=== PATIENT | female | born 1950 | race Caucasian/White ===

== ENCOUNTER 2016-04-26 20:22 | Observation (INO) | payer MEDICAID ==
[~2016-04-26] VITALS: Ht 160 cm; Wt 92.0 kg
[2016-04-26 20:25] VITALS: BP 196/119; PULSE 100; RESP 24; TEMP 100.6; O2SAT 98
[2016-04-26] MEDS ORDERED: HYDR-3366 PO (20:54)
[2016-04-26] MEDS ORDERED: IBUP800T23 PO (20:54)
[2016-04-26] MEDS ORDERED: BISA10SU3 RECTAL (20:54)
[2016-04-26] MEDS ORDERED: APLI5INJ2 (20:54)
[2016-04-26] MEDS ORDERED: ALBU0.08 NEB (20:54)
[2016-04-26] MEDS ORDERED: PERC10TA27 PO (20:54)
[2016-04-26] MEDS ORDERED: ASPI81CH CHEW (20:54)
[2016-04-26] MEDS ORDERED: [UNRECOGNIZED DRUG - CODE] (20:54)
[2016-04-26 20:58] LABS: AUTOMATED NEUTROPHIL # 4.4 TH/MM3 (1.8-7.7); BASOPHIL % 0.3 % (0.0-2.0); EOSINOPHIL % 0.5 % (0.0-4.0); HEMATOCRIT 34.1 % (35.0-46.0); HEMO FLAGS DIFF FINAL; LYMPH % 12.1 % (9.0-44.0); LYMPHOCYTE # 0.7 TH/MM3 (1.0-4.8); MEAN CELL VOLUME 89.2 FL (80.0-100.0); MEAN CORPUSCULAR HEMOGLOBIN 29.9 PG (27.0-34.0); MEAN CORPUSCULAR HGB CONC 33.5 % (32.0-36.0); MONO % 7.9 % (0.0-8.0); NEUT % 79.2 % (16.0-70.0); PLATELET COUNT 191 TH/MM3 (150-450); RED BLOOD COUNT 3.82 MIL/MM3 (4.00-5.30); RED CELL DISTRIBUTION WIDTH 17.2 % (11.6-17.2); WHITE BLOOD COUNT 5.5 TH/MM3 (4.0-11.0)
[2016-04-26 21:07] LABS: APTT (PATIENT) 26.8 SEC (24.3-30.1); PROTHROMBIN TIME - PATIENT 11.6 SEC (9.8-11.6)
[2016-04-26 21:13] LABS: ANION GAP 8 MEQ/L (5-15); AST (GOT) 71 U/L (15-37); BICARBONATE 24.6 MEQ/L (21.0-32.0); BLOOD UREA NITROGEN 19 MG/DL (7-18); CHLORIDE 100 MEQ/L (98-107); GLOMERULAR FILTRATION RATE 68 ML/MIN (>89); POTASSIUM 3.8 MEQ/L (3.5-5.1); SODIUM (NA) 133 MEQ/L (136-145)
[2016-04-26 21:18] LABS: ALKALINE PHOSPHATASE 424 U/L (45-117); ALT (GPT) 15 U/L (10-53)
[2016-04-26] MEDS ORDERED: LORazepam 2 MG/ML VIAL IV PUSH ONE (21:30)
--- NOTE | 2016-04-26 21:33 | RADRPT ---
EXAM DATE/TIME: 04/26/2016 20:48 [facility] COMPARISON: No previous studies available for comparison. INDICATIONS : Short of breath. MEDICAL HISTORY : None. SURGICAL HISTORY : None. ENCOUNTER: Initial ACUITY: 1 day PAIN SCORE: 0/10 LOCATION: Bilateral chest FINDINGS: The heart size is normal. The lungs are grossly clear. There does appear to be absence of much of the fourth right rib. There is a focal bone lesion at the medial left fourth rib. There is a questionable irregularity at the right ninth rib. The patient does have a compression deformity at the T11 vertebral body. A single view of the chest demonstrates the lungs to be symmetrically aerated without evidence of mas s, infiltrate or effusion. The cardiomediastinal contours are unremarkable. Osseous structures are intact. CONCLUSION: 1. The lungs are grossly clear. 2. Suspected bone lesions as described above. Reed Flores MD on April 26, 2016 at 21:22 Board Certified Radiologist. This report was verified electronically.
[2016-04-26 21:46] LABS: CREATINE KINASE 55 U/L (26-192)
[2016-04-26 21:47] VITALS: BP 136/69; PULSE 93; RESP 30; O2SAT 95
--- NOTE | 2016-04-26 21:56 | PD ---
HPI Chief Complaint: Respiratory Symptoms Time Seen by Provider: 21:53 Travel History International Travel<30 days: No Contact w/Intl Traveler<30days: No Traveled to known affect area: No History of Present Illness HPI 65-year-old female brought in by EMS from local nursing facility. Patient comes in with complaints of shortness of breath. Patient also complaints of chronic lower back pain. Patient was in a detention facility status post fracture of her left lower leg and left elbow. Patient reports history of falling on January 17, injuring her left leg and left wrist. She was treated in [facility] and [place]. Patient states she has lost proxy 40 pounds last 3 months. She leans the bad food at the detention facility. Patient is noted to have a low-grade fever 100.6 and her vital signs, however she denies fever, chills, cough, sore throat, upper respiratory symptoms,, vomiting, or urinary symptoms. Patient states she's had episodes of shortness of breath intermittently over the past several weeks. Again she complains of significant thoracic and lower back pain for which he claims her bed at the [facility]. She has no known drug allergies. PFSH Past Medical History Anxiety: Yes Depression: Yes Tetanus Vaccination: Unknown Influenza Vaccination: No ?: Not Social History Alcohol Use: No Tobacco Use: No Substance Use: No Allergies-Medications (Allergen,Severity, Reaction): Coded Allergies: No Known Allergies (Unverified , 04/26/16) Reported Meds & Prescriptions Reported Meds & Active Scripts Active Reported Albuterol Neb (Albuterol Sulfate) 2.5 Mg/3 Ml Neb 2.5 Mg NEB Q6HR While awake Percocet (Oxycodone-Acetaminophen) 10-325 mg Tab 1 Tab PO Q8HR PRN [place] (Hydrocodone-Acetaminophen) 10-325 Mg Tab 1 Tab PO Q6H PRN Ibuprofen 800 Mg Tab 800 Mg PO Q6HR PRN Polyethylene Glycol 3350 (Polyethylene Glycol 3350 (Bulk) 1 Gra Gra Bisacodyl Supp (Bisacodyl) 10 Mg Supp 10 Mg RECTAL DAILY PRN Aplisol (Tuberculin Ppd) 5 Unit/0.1 Ml Inj Aspirin 81 Mg Chew 81 Mg CHEW DAILY Review of Systems Except as stated in HPI: all other systems reviewed are Neg General / Constitutional: No: Fever Eyes: No: Visual changes HENT: No: Headaches Cardiovascular: No: Chest Pain or Discomfort Respiratory: No: Shortness of Breath Gastrointestinal: No: Abdominal Pain Genitourinary: No: Dysuria Musculoskeletal: No: Pain Skin: No Rash Neurologic: No: Weakness Psychiatric: No: Depression Endocrine: No: Polydipsia Hematologic/Lymphatic: No: Easy Bruising Physical Exam Narrative GENERAL: Patient appears in [id number] distress. SKIN: Warm and dry. Mild pallor. Mildly poor turgor. HEAD: Atraumatic. Normocephalic. EYES: Pupils equal and round. No scleral icterus. No injection or drainage. ENT: No nasal bleeding or discharge. Mucous membranes pink and somewhat dry. Pharynx is clear. Airway is patent. NECK: Trachea midline. Supple and nontender. No bony tenderness or step-off. CARDIOVASCULAR: Regular rate and rhythm. No murmurs gallops or rubs appreciated. RESPIRATORY: No accessory muscle use. Clear to auscultation. Breath sounds equal bilaterally. GASTROINTESTINAL: Abdomen soft, non-tender, nondistended. Hepatic and splenic margins not palpable. MUSCULOSKELETAL: Extremities without clubbing, cyanosis, or patient has bilateral nontender 1-2+ pitting edema. No obvious deformities. Patient is tenderness along the left wrist with a splint in place where her previous fracture was. Patient complains of generalized thoracic discomfort with palpation. No specific point tenderness is noted. NEUROLOGICAL: Awake and alert. No obvious cranial nerve deficits. Motor grossly within normal limits. Five out of 5 muscle strength in the arms and legs. Normal speech. PSYCHIATRIC: Appropriate mood and affect; insight and judgment normal. Data Data Last Documented VS Vital Signs Date Time Temp Pulse Resp B/P Pulse Ox O2 Delivery O2 Flow Rate FiO2 04/26/16 21:49 Room Air 04/26/16 21:47 93 30 136/69 95 04/26/16 20:25 100.6 04/26/16 20:25 2 Orders Electrocardiogram (04/26/16 20:29) B-Type Natriuretic Peptide (04/26/16 20:29) Ckmb (Isoenzyme) Profile (04/26/16 20:29) Complete Blood Count With Diff (04/26/16 20:29) Comprehensive Metabolic Panel (04/26/16 20:29) Magnesium (Mg) (04/26/16 20:29) Prothrombin Time / Inr (Pt) (04/26/16 20:29) Act Partial Throm Time (Ptt) (04/26/16 20:29) Troponin I (04/26/16 20:29) Chest, Single Ap (04/26/16 20:29) Ecg Monitoring (04/26/16 20:29) Bilateral Bp Monitoring (04/26/16 20:29) Iv Access Insert/Monitor (04/26/16 20:29) Oximetry (04/26/16 20:29) Oxygen Administration (04/26/16 20:29) Lactic Acid (04/26/16 20:29) Blood Culture (04/26/16 20:29) Influenzae A/B Antigen (04/26/16 20:29) Urinalysis - C+S If Indicated (04/26/16 21:18) Ct Pulmonary Angiogram (04/26/16 21:20) Lorazepam Inj (Ativan Inj) (04/26/16 21:30) Sodium Chlor 0.9% 1000 Ml Inj (Ns 1000 M (04/26/16 22:45) Labs Laboratory Tests Test 04/26/16 20:35 White Blood Count 5.5 TH/MM3 Red Blood Count 3.82 MIL/MM3 Hemoglobin 11.4 GM/DL Hematocrit 34.1 % Mean Corpuscular Volume 89.2 FL Mean Corpuscular Hemoglobin 29.9 PG Mean Corpuscular Hemoglobin 33.5 % Concent Red Cell Distribution Width 17.2 % Platelet Count 191 TH/MM3 Mean Platelet Volume 7.9 FL Neutrophils (%) (Auto) 79.2 % Lymphocytes (%) (Auto) 12.1 % Monocytes (%) (Auto) 7.9 % Eosinophils (%) (Auto) 0.5 % Basophils (%) (Auto) 0.3 % Neutrophils # (Auto) 4.4 TH/MM3 Lymphocytes # (Auto) 0.7 TH/MM3 Monocytes # (Auto) 0.4 TH/MM3 Eosinophils # (Auto) 0.0 TH/MM3 Basophils # (Auto) 0.0 TH/MM3 CBC Comment DIFF FINAL Differential Comment Prothrombin Time 11.6 SEC Prothromb Time International 1.0 RATIO Ratio Activated Partial 26.8 SEC Thromboplast Time Sodium Level 133 MEQ/L Potassium Level 3.8 MEQ/L Chloride Level 100 MEQ/L Carbon Dioxide Level 24.6 MEQ/L Anion Gap 8 MEQ/L Blood Urea Nitrogen 19 MG/DL Creatinine 0.84 MG/DL Estimat Glomerular Filtration 68 ML/MIN Rate Random Glucose 81 MG/DL Lactic Acid Level 1.4 mmol/L Calcium Level 11.5 MG/DL Magnesium Level 2.0 MG/DL Total Bilirubin 1.0 MG/DL Aspartate Amino Transf 71 U/L (AST/SGOT) Alanine Aminotransferase 15 U/L (ALT/SGPT) Alkaline Phosphatase 424 U/L Total Creatine Kinase 55 U/L Troponin I LESS THAN 0.02 NG/ML B-Type Natriuretic Peptide 37 PG/ML Total Protein 8.8 GM/DL Albumin 3.8 GM/DL MDM Medical Decision Making Medical Screen Exam Complete: Yes Emergency Medical Condition: Yes Differential Diagnosis Anxiety. Intractable pain. Shortness of breath. Cardiac syndrome. CHF. Pneumonia. Influenza. Narrative Course Patient is medically stable at time of exam. Labs ordered including CBC showing a mild anemia hemoglobin of 11.4. CMP shows sodium 133, normal potassium at 3.8, BUN of 19, creatinine of 0.84, calcium somewhat elevated 11.5. AST slightly elevated at 71, alkaline phosphatase is elevated at 424. Troponin is less than 0.04. ProBNP is 37 Rapid influenza A and B is negative. Blood cultures are drawn and are pending. Chest x-ray shows lungs to be grossly clear, however there appears to be an absence of much of the fourth right rib there is a focal bone lesion at the medial left fourth rib there is also question bone irregularity of the right ninth rib. The patient does have a compression deformity at the T11 vertebral body. Both lungs appear to be areas symmetrically is a mass, infiltrate, or effusion. Patient is discussed with Dr. Chaudhry, who recommends a CT angiogram to rule out pulmonary embolism. 2300 hrs. patient just went to CT for CT angiogram. The patient is turned over to . He will determine the disposition of the patient. Condition: Stable Mervin Birch Apr 26, 2016 21:56
[2016-04-26] MEDS ORDERED: SODIUM CHLOR 0.9% 1000 ML INJ 1,000 ML IV ONE (22:45)
[2016-04-26 22:56] LABS: BLOOD, URINE NEG (NEG); GLUCOSE,URINE NEG (NEG); KETONE, URINE 40 mg/dL (NEG); MUCUS URINE FEW /lpf (OCC); NITRITE,URINE NEG (NEG); SQUAMOUS EPITHELIAL CELL URINE <1 /hpf (0-5); URINE COLOR YELLOW (YELLW/STRAW)
[2016-04-26 22:57] LABS: COMMENT (UR) CULT NOT INDICATED; CULTURE IF INDICATED CULT NOT INDICATED
[2016-04-26] MEDS ORDERED: IOHEXOL 350 MG/ML 50 ML BTL (for RAD DIAG) IV ONE (23:10)
--- NOTE | 2016-04-26 23:29 | RADRPT ---
EXAM DATE/TIME: 04/26/2016 22:53 [facility] COMPARISON: CHEST SINGLE AP, April 26, 2016, 20:48. INDICATIONS : Shortness of breath x 3 days IV CONTRAST: 65 cc Omnipaque 350 (iohexol) IV RADIATION DOSE: 11.74 CTDIvol (mGy) MEDICAL HISTORY : None SURGICAL HISTORY : None. ENCOUNTER: Initial ACUITY: 3 days PAIN SCALE: 2/10 LOCATION: Bilateral chest TECHNIQUE: Volumetric scanning of the chest was performed using a pulmonary embolism protocol MIP images were re constructed. Using automated exposure control and adjustment of the mA and/or kV according to patien t size, radiation dose was kept as low as reasonably achievable to obtain optimal diagnostic quality images. FINDINGS: Examination of the pulmonary vasculature demonstrates good filling of the main, lobar and segmental b ranches. There are no filling defects to suggest pulmonary embolism. Multiplanar reconstructions are also unremarkable. There are multiple small bilateral pulmonary nodules in the range of 2-3 mm with a largest nodule in the right middle lobe measuring 6 mm suspicious for metastatic disease. No pleural effusions are iden tified. There are large lymph nodes in the axillary regions bilaterally which also may reflect metast atic disease. Coronary artery calcifications are present. There are enlarged bilateral hilar nodes ch aracteristic of metastatic disease. There is diffuse osteolytic metastatic disease involving the ribs as well as the spinal axis. CONCLUSION: 1. No evidence of pulmonary embolism. 2. Widespread osteolytic metastatic disease. 3. Multiple small bilateral nodules as above characteristic of metastatic disease. Bilateral hilar ad enopathy is also present. Charanjit Petersen MD on April 26, 2016 at 23:21 Board Certified Radiologist. This report was verified electronically.
--- NOTE | 2016-04-26 23:41 | PD ---
Data Data Last Documented VS Vital Signs Date Time Temp Pulse Resp B/P Pulse Ox O2 Delivery O2 Flow Rate FiO2 04/26/16 21:49 Room Air 04/26/16 21:47 93 30 136/69 95 04/26/16 20:25 100.6 04/26/16 20:25 2 Orders Electrocardiogram (04/26/16 20:29) B-Type Natriuretic Peptide (04/26/16 20:29) Ckmb (Isoenzyme) Profile (04/26/16 20:29) Complete Blood Count With Diff (04/26/16 20:29) Comprehensive Metabolic Panel (04/26/16 20:29) Magnesium (Mg) (04/26/16 20:29) Prothrombin Time / Inr (Pt) (04/26/16 20:29) Act Partial Throm Time (Ptt) (04/26/16 20:29) Troponin I (04/26/16 20:29) Chest, Single Ap (04/26/16 20:29) Ecg Monitoring (04/26/16 20:29) Bilateral Bp Monitoring (04/26/16 20:29) Iv Access Insert/Monitor (04/26/16 20:29) Oximetry (04/26/16 20:29) Oxygen Administration (04/26/16 20:29) Lactic Acid (04/26/16 20:29) Blood Culture (04/26/16 20:29) Influenzae A/B Antigen (04/26/16 20:29) Urinalysis - C+S If Indicated (04/26/16 21:18) Ct Pulmonary Angiogram (04/26/16 21:20) Lorazepam Inj (Ativan Inj) (04/26/16 21:30) Sodium Chlor 0.9% 1000 Ml Inj (Ns 1000 M (04/26/16 22:45) Iohexol 350 Inj (Omnipaque 350 Inj) (04/26/16 23:10) Place In Observation (04/26/16 ) Vital Signs (Adult) Q4H (04/26/16 23:33) Activity Oob With Assistance (04/26/16 23:33) Firebrick And Refractory Tile Repairer / Telemetry .CONTINUOUS (04/26/16 23:33) Diet Heart Healthy (04/27/16 Breakfast) Sodium Chloride 0.9% Flush (Ns Flush) (04/26/16 23:45) Sodium Chloride 0.9% Flush (Ns Flush) (04/27/16 09:00) Basic Metabolic Panel (Bmp) (04/27/16 06:00) Complete Blood Count With Diff (04/27/16 06:00) Resp Oxygen Desmond C Titrat 1-4 L (04/26/16 ) Pt Request For Service (04/26/16 23:33) Case Management Consult (04/26/16 23:33) Enoxaparin Inj (Lovenox Inj) (04/27/16 09:00) Naloxone Inj (Narcan Inj) (04/26/16 23:45) Consult Medical Oncology (04/26/16 ) Hydromorphone Pf Inj (Dilaudid Pf Inj) (04/26/16 23:45) Admit Order (Ed Use Only) (04/26/16 23:35) Labs Laboratory Tests Test 04/26/16 04/26/16 20:35 21:31 White Blood Count 5.5 TH/MM3 Red Blood Count 3.82 MIL/MM3 Hemoglobin 11.4 GM/DL Hematocrit 34.1 % Mean Corpuscular Volume 89.2 FL Mean Corpuscular Hemoglobin 29.9 PG Mean Corpuscular Hemoglobin 33.5 % Concent Red Cell Distribution Width 17.2 % Platelet Count 191 TH/MM3 Mean Platelet Volume 7.9 FL Neutrophils (%) (Auto) 79.2 % Lymphocytes (%) (Auto) 12.1 % Monocytes (%) (Auto) 7.9 % Eosinophils (%) (Auto) 0.5 % Basophils (%) (Auto) 0.3 % Neutrophils # (Auto) 4.4 TH/MM3 Lymphocytes # (Auto) 0.7 TH/MM3 Monocytes # (Auto) 0.4 TH/MM3 Eosinophils # (Auto) 0.0 TH/MM3 Basophils # (Auto) 0.0 TH/MM3 CBC Comment DIFF FINAL Differential Comment Prothrombin Time 11.6 SEC Prothromb Time International 1.0 RATIO Ratio Activated Partial 26.8 SEC Thromboplast Time Sodium Level 133 MEQ/L Potassium Level 3.8 MEQ/L Chloride Level 100 MEQ/L Carbon Dioxide Level 24.6 MEQ/L Anion Gap 8 MEQ/L Blood Urea Nitrogen 19 MG/DL Creatinine 0.84 MG/DL Estimat Glomerular Filtration 68 ML/MIN Rate Random Glucose 81 MG/DL Lactic Acid Level 1.4 mmol/L Calcium Level 11.5 MG/DL Magnesium Level 2.0 MG/DL Total Bilirubin 1.0 MG/DL Aspartate Amino Transf 71 U/L (AST/SGOT) Alanine Aminotransferase 15 U/L (ALT/SGPT) Alkaline Phosphatase 424 U/L Total Creatine Kinase 55 U/L Troponin I LESS THAN 0.02 NG/ML B-Type Natriuretic Peptide 37 PG/ML Total Protein 8.8 GM/DL Albumin 3.8 GM/DL Urine Color YELLOW Urine Turbidity CLEAR Urine pH 5.0 Urine Specific [place] 1.028 Urine Protein TRACE mg/dL Urine Glucose (UA) NEG mg/dL Urine Ketones 40 mg/dL Urine Occult Blood NEG Urine Nitrite NEG Urine Bilirubin NEG Urine Urobilinogen 2.0 MG/DL Urine Leukocyte Esterase NEG Urine RBC 1 /hpf Urine WBC LESS THAN 1 /hpf Urine Squamous Epithelial <1 /hpf Cells Urine Mucus FEW /lpf Microscopic Urinalysis Comment CULT NOT INDICATED MDM Supervised Visit with SHUAIL: Yes Narrative Course I, Dr. Chaudhry, have reviewed the advance practice practitioner's documentation and am in agreement, met with the patient face to face, made the diagnosis, and the medical decision making was done by me. See his note for further details. Briefly this is a 65-year-old female who was brought in by EMS from her prison complaining of shortness of breath. The patient is in a prison because she fell in December of last year, resulting in a left hip and left elbow fracture that was operated on in [facility]. Patient reports no short of breath at rest, worse with exertion. She is also having some back pain and states that her bed at her prison is very uncomfortable. She denies fevers or chills. No known history of cardiac disease. Physical exam shows that the patient is awake and alert, dry mucous membranes, clear and equal breath sounds bilaterally, no skin color changes, signs of infection, or decubitus ulcers. Initial vital signs show heart rate 100, blood pressure 196/ 119, pulse ox 98% on 2 L nasal cannula, oral temp of 100.6F. When taken off of oxygen, the patient's O2 saturation drops to 91% on room air. She is not on O2 at the prison. Her CBC shows WBC 5.5, hemoglobin 11.4, hematocrit 34.1, platelets 191. Her CMP is remarkable for calcium 11.5, alkaline phosphatase 424. Cardiac enzymes are negative. Chest x-ray shows clear lungs, suspected bone lesions as described above. Influenza is negative. CT pulmonary angiogram: CONCLUSION: 1. No evidence of pulmonary embolism. 2. Widespread osteolytic metastatic disease. 3. Multiple small bilateral nodules as above characteristic of metastatic disease. Bilateral hilar adenopathy is also present. Patient was made aware of all findings. Again she desaturates to 91% on room air. She was given a liter of IV fluids for her hypercalcemia. She states she feels a lot more comfortable on our hospital bed and then she does in her bed at her prison. Given low O2 saturation with likely metastatic disease and hypercalcemia, the patient be admitted for overnight observation for oncology consultation. Case discussed with hospitalist Dr. Busch who will admit the patient to her service. Diagnosis Primary Impression: Dyspnea Qualified Code: R06.00 - Dyspnea, unspecified type Additional Impressions: Hypoxia Hypercalcemia Metastatic disease Admitting Information Admitting Physician Requests: Observation Condition: Stable Ricardo Chaudhry MD Apr 26, 2016 23:41
[2016-04-26] MEDS ORDERED: SODIUM CHLORIDE 0.9% FLUSH 5 ML FLUSH FLUSH PRN (23:45)
[2016-04-26] MEDS ORDERED: NALOXONE HCL 0.4 MG/ML AMP IV PRN (23:45)
[2016-04-26] MEDS ORDERED: HYDROmorphone HCL PF 1 MG/ML VIAL IV PUSH PRN (23:45)
[2016-04-26 23:53] VITALS: O2SAT 95
[2016-04-27] VITALS (9 sets, daily range): BP systolic 96–184; BP diastolic 55–92; PULSE 70–84; RESP 16–18; TEMP 97.2–98.5; O2SAT 94–100
--- NOTE | 2016-04-27 02:46 | HHI.HP ---
[facility] Primary Care Physician No Primary Care Physician Admission Diagnosis dyspnea, hypoxia, metastatic disease, hypercalcemia Diagnoses: Chief Complaint: dyspnea Travel History International Travel<30 Days: No Contact w/Intl Traveler <30 Da: No Traveled to Known Affected Are: No History of Present Illness History taken from patient and ED physician. 65 y/o female with no medical history presented from a SNF for rehab and developed shortness of breath. On December 13 she fell out of the tub and was seen in [place] and sent to rehab. She states ever since January she has been having back pain and trouble sleeping. They have been switching out her beds but it has not helped. In February she began using a wheelchair because she was having trouble walking , and was weak. She states she was having PT, but recently insurance has taken her sessions away. Upon arrival to ED she was found to have o2 sats in the low 90s on room air. She was then placed on oxygen. She denies any chest pain, fever, chills or nausea or vomiting. Review of Systems Constitutional: DENIES: Fever, Chills Respiratory: COMPLAINS OF: Shortness of breath, DENIES: Cough, Sputum production Cardiovascular: DENIES: Chest pain, Lower Extremity Edema Gastrointestinal: DENIES: Constipation, Diarrhea, Nausea, Vomiting Genitourinary: DENIES: Hematuria, Dysuria Musculoskeletal: COMPLAINS OF: Back pain Integumentary: DENIES: Rash Hematologic/lymphatic: DENIES: Lymphadenopathy Immunologic/allergic: DENIES: Urticaria Neurologic: DENIES: Headache Past Family Social History Past Medical History Patient denies any medical history Past Surgical History Right hip fracture Reported Medications Reported Meds & Active Scripts Active Reported Albuterol Neb (Albuterol Sulfate) 2.5 Mg/3 Ml Neb 2.5 Mg NEB Q6HR While awake Percocet (Oxycodone-Acetaminophen) 10-325 mg Tab 1 Tab PO Q8HR PRN Woodleaf (Hydrocodone-Acetaminophen) 10-325 Mg Tab 1 Tab PO Q6H PRN Ibuprofen 800 Mg Tab 800 Mg PO Q6HR PRN Polyethylene Glycol 3350 (Polyethylene Glycol 3350 (Bulk) 1 Gra Gra Bisacodyl Supp (Bisacodyl) 10 Mg Supp 10 Mg RECTAL DAILY PRN Aplisol (Tuberculin Ppd) 5 Unit/0.1 Ml Inj Aspirin 81 Mg Chew 81 Mg CHEW DAILY Allergies: Coded Allergies: No Known Allergies (Unverified , 04/26/16) Active Ordered Medications Current Medications Medications (Trade) Dose Ordered Sig/Jaelyn Route Start Time Stop Time Status Last Admin (NS Flush) 2 ml UNSCH PRN FLUSH 04/26/16 23:45 (NS Flush) 2 ml BID FLUSH 04/27/16 09:00 (Lovenox Inj) 40 mg Q24H SQ 04/27/16 09:00 (Narcan Inj) 0.4 mg UNSCH PRN IV 04/26/16 23:45 (Dilaudid Pf Inj) 0.2 mg Q4H PRN IV PUSH 04/26/16 23:45 Family History Patient denies any family history Social History Tobacco use: denies Alcohol use: denies Illicit drug use: denies Physical Exam Vital Signs Vital Signs Date Time Temp Pulse Resp B/P Pulse Ox O2 Delivery O2 Flow Rate FiO2 04/27/16 02:20 84 04/27/16 00:30 78 18 94 Room Air 04/26/16 23:53 95 04/26/16 21:49 Room Air 04/26/16 21:47 93 30 136/69 95 Room Air 04/26/16 20:25 100.6 100 24 196/119 98 04/26/16 20:25 24 98 Nasal Cannula 2 04/26/16 20:25 98 Nasal Cannula 2 Physical Exam GENERAL: This is a well-nourished, well-developed patient, in no apparent distress. SKIN: No rashes, ecchymoses or lesions. Cool and dry. HEAD: Atraumatic. Normocephalic. No temporal or scalp tenderness. EYES: No scleral icterus. No injection or drainage. ENT: Nose without bleeding, purulent drainage or septal hematoma.Airway patent. NECK: Trachea midline. No JVD. Supple, nontender, no meningeal signs. CARDIOVASCULAR: Regular rate and rhythm without murmurs, gallops, or rubs. RESPIRATORY: Clear to auscultation. Breath sounds equal bilaterally. No wheezes , rales, or rhonchi. GASTROINTESTINAL: Abdomen soft, non-tender, nondistended. no guarding. MUSCULOSKELETAL: Extremities without clubbing, cyanosis, or edema. No calf tenderness. NEUROLOGICAL: Awake and alert. Normal speech. Bilateral lower extremity with generalized weakness/3 out of 5. Laboratory Laboratory Tests Test 04/26/16 04/26/16 20:35 21:31 White Blood Count 5.5 Red Blood Count 3.82 Hemoglobin 11.4 Hematocrit 34.1 Mean Corpuscular Volume 89.2 Mean Corpuscular Hemoglobin 29.9 Mean Corpuscular Hemoglobin 33.5 Concent Red Cell Distribution Width 17.2 Platelet Count 191 Mean Platelet Volume 7.9 Neutrophils (%) (Auto) 79.2 Lymphocytes (%) (Auto) 12.1 Monocytes (%) (Auto) 7.9 Eosinophils (%) (Auto) 0.5 Basophils (%) (Auto) 0.3 Neutrophils # (Auto) 4.4 Lymphocytes # (Auto) 0.7 Monocytes # (Auto) 0.4 Eosinophils # (Auto) 0.0 Basophils # (Auto) 0.0 CBC Comment DIFF FINAL Differential Comment Prothrombin Time 11.6 Prothromb Time International 1.0 Ratio Activated Partial 26.8 Thromboplast Time Sodium Level 133 Potassium Level 3.8 Chloride Level 100 Carbon Dioxide Level 24.6 Anion Gap 8 Blood Urea Nitrogen 19 Creatinine 0.84 Estimat Glomerular Filtration 68 Rate Random Glucose 81 Lactic Acid Level 1.4 Calcium Level 11.5 Magnesium Level 2.0 Total Bilirubin 1.0 Aspartate Amino Transf 71 (AST/SGOT) Alanine Aminotransferase 15 (ALT/SGPT) Alkaline Phosphatase 424 Total Creatine Kinase 55 Troponin I LESS THAN 0.02 B-Type Natriuretic Peptide 37 Total Protein 8.8 Albumin 3.8 Urine Color YELLOW Urine Turbidity CLEAR Urine pH 5.0 Urine Specific [place] 1.028 Urine Protein TRACE Urine Glucose (UA) NEG Urine Ketones 40 Urine Occult Blood NEG Urine Nitrite NEG Urine Bilirubin NEG Urine Urobilinogen 2.0 Urine Leukocyte Esterase NEG Urine RBC 1 Urine WBC LESS THAN 1 Urine Squamous Epithelial <1 Cells Urine Mucus FEW Microscopic Urinalysis Comment CULT NOT INDICATED Date/Time Procedure Status Source Growth 04/26/16 20:35 Influenza Types A,B Antigen (RUTHANN) - Final Complete Nasal Washing NEGATIVE FOR FLU A AND B ANTIGEN.... 04/26/16 20:30 Aerobic Blood Culture Received Blood Peripheral Pending 04/26/16 20:30 Anaerobic Blood Culture Received Blood Peripheral Pending Result Diagram: 04/26/16203404/26/162034 Imaging Last Impressions CT Angiography 04/26/162119 Signed Impressions: Service Date/Time: Tuesday, April 26, 2016 22:53 - CONCLUSION: 1. No evidence of pulmonary embolism. 2. Widespread osteolytic metastatic disease. 3. Multiple small bilateral nodules as above characteristic of metastatic disease. Bilateral hilar adenopathy is also present. Charanjit Petersen MD Chest X-Ray 04/26/162028 Signed Impressions: Service Date/Time: Tuesday, April 26, 2016 20:48 - CONCLUSION: 1. The lungs are grossly clear. 2. Suspected bone lesions as described above. Reed Flores MD Assessment and Plan Problem List: (1) Dyspnea ICD Code: R06.00 Status: Acute (2) Hypercalcemia ICD Code: E83.52 Status: Acute (3) Metastatic disease ICD Code: C79.9 Status: Acute Assessment and Plan 65 y/o female with no medical history presented with: Dyspnea/hypoxia Images: CT angiogram shows No PE. Widespread osteolytic metastatic disease, and Multiple small bilateral nodules as above characteristic of metastatic disease. -Consult Oncology -Oxygen as needed Hypercalcemia -Trend BMP -1 liter NS given in ED, Supportive IVF in AM if no change in labs Will follow-up calcium levels. Patient will likely need high flow normal saline IV fluids for correction of her calcium. However would like to repeat labs and start fluids in a.m. Watch for fluid overload. May need Lasix with high flow fluids or bisphosphonates alternatively if renal function permits. Metastatic disease/ bone pain -IV Dilaudid for pain management . Further workup by oncology/outpatient. Physical therapy consult Case management consult as patient wants to go to a separate rehabilitation facility. She stated she was initially planned to be discharged from the rehabilitation to an assisted living facility in [place]. However with this current diagnosis, she might remain here at a rehabilitation facility for further treatment. DVT prophylaxis: Lovenox Written by Dena MATHEWS, acting as scribe for Dr. Busch on 04/27/16 at 0255. The documentation accurately reflects the work performed [id number] and decisions made by me and the physician Dr Busch on 04/27/16. The documentation accurately reflects the work performed [id number] by me on at 0255 Discussed Condition With Patient and ED physician Problem Qualifiers (1) Dyspnea: Qualified Code: R06.00 - Dyspnea, unspecified type Dena Palacios Apr 27, 2016 02:46 Deann Busch MD Apr 27, 2016 07:46
[2016-04-27 06:10] LABS: AUTOMATED NEUTROPHIL # 3.2 TH/MM3 (1.8-7.7); BASOPHIL # 0.1 TH/MM3 (0-0.2); BASOPHIL % 1.2 % (0.0-2.0); EOSINOPHIL % 0.8 % (0.0-4.0); HEMATOCRIT 29.5 % (35.0-46.0); HEMO FLAGS DIFF FINAL; LYMPHOCYTE # 0.6 TH/MM3 (1.0-4.8); MEAN CELL VOLUME 90.2 FL (80.0-100.0); MEAN CORPUSCULAR HEMOGLOBIN 29.8 PG (27.0-34.0); MEAN CORPUSCULAR HGB CONC 33.1 % (32.0-36.0); MONO % 10.7 % (0.0-8.0); NEUT % 73.3 % (16.0-70.0); PLATELET COUNT 165 TH/MM3 (150-450); RED BLOOD COUNT 3.27 MIL/MM3 (4.00-5.30); RED CELL DISTRIBUTION WIDTH 16.7 % (11.6-17.2); WHITE BLOOD COUNT 4.4 TH/MM3 (4.0-11.0)
[2016-04-27] MEDS ORDERED: ENALAPRILAT 2.5 MG/2 ML VIAL IV PUSH PRN (06:30)
[2016-04-27] MEDS ORDERED: BISACODYL 10 MG SUPP RECTAL PRN (06:30)
[2016-04-27 06:31] LABS: BICARBONATE 24.2 MEQ/L (21.0-32.0); POTASSIUM 3.7 MEQ/L (3.5-5.1)
[2016-04-27] MEDS ORDERED: RESP: ALBUTEROL 2.5 MG/IPRATROPIUM 0.5 MG NEB (SCH) NEB (08:15)
[2016-04-27] MEDS ORDERED: oxyCODONE/ACETAMINOPHEN 10 MG/325 MG TAB PO PRN (08:15)
[2016-04-27] MEDS: SODIUM CHLORIDE 0.9% FLUSH 5 ML FLUSH FLUSH SCH ×2 (08:47→22:09)
[2016-04-27] MEDS: DOCUSATE SODIUM 100 MG CAP PO SCH ×2 (08:47→21:00)
[2016-04-27] MEDS: ASPIRIN 81 MG CHEW TAB CHEW SCH (08:47)
[2016-04-27] MEDS: ENOXAPARIN SODIUM 40 MG/0.4 ML SYRINGE SQ SCH (08:48)
[2016-04-27] MEDS ORDERED: DIATRIZOATE MEGLUM/DIATRIZOATE SOD 9 ML CUP PO ONE (10:00)
--- NOTE | 2016-04-27 11:10 | HHI.PR ---
Subjective Remarks Follow-up for shortness of breath. The patient states her shortness of breath has improved overnight with O2 and a good night sleep. She states she's been very anxious and hasn't been sleeping well. She feels like this is why she's been short of breath. The anxiety has been causing her fever as well. She has been short of breath for the past 4 days. She quit smoking in 1994. She is oriented to person, time, and place. She states that she has been at rehabilitation due to a femur fracture. She states that her symptoms are from sleeping poorly from a bad mattress. She cannot really say how long she is having back pain. She denies any lower extremity numbness or tingling. She states that her PT was stopped at her rehabilitation facility, and is happy to do PT here. She says she is planning to go to an [facility]. She states that she was in the hospital in [facility] in 2014 and supposedly she had a doctor that she had cancer that time. She states she was referred to an oncologist up there who did a PET scan and told her she did not have any cancer. She was started on a medication (Formera?), which she states she took to "prevent cancer". She adamantly denies any history of cancer. She complains of anxiety and insomnia, but she declines any medication when offered. Addendum 11:25 discussed with the patient's daughter with the patient's permission. Apparently the patient was diagnosed with stage IV breast cancer in March 2014. She was on chemotherapy Femara for 8 months before the patient stopped taking her medication. The patient started states that the patient believes that she is healed and doesn't have any medical problems. She was recently admitted with multiple pathologic fractures at [facility]. She has not been able to establish with outpatient oncologist due to insurance since moving to [place]. The patient's daughter is aware of the lytic lesions on the spine, but does not believe the patient has ever had any pulmonary disease before. The patient's daughter is happy to establish with an oncologist here, and does understand that were the patient to undergo treatment , they would need to do that as outpatient. She is agreeable to palliative care consultation as well to discuss further options. I did let the patient's daughter know that if the patient's shortness of breath is due to metastatic disease, it will likely be difficult to resolve here during this hospitalization. Objective Vitals Vital Signs Date Time Temp Pulse Resp B/P Pulse Ox O2 Delivery O2 Flow Rate FiO2 04/27/16 09:54 20 04/27/16 08:00 98.0 71 18 117/62 100 04/27/16 06:06 97.7 77 18 184/92 97 04/27/16 03:30 78 04/27/16 02:20 84 04/27/16 00:30 78 18 94 Room Air 04/26/16 23:53 95 04/26/16 21:49 Room Air 04/26/16 21:47 93 30 136/69 95 Room Air 04/26/16 20:25 100.6 100 24 196/119 98 04/26/16 20:25 24 98 Nasal Cannula 2 04/26/16 20:25 98 Nasal Cannula 2 Result Diagram: 04/27/16 0546 04/27/[address] Angiography 04/26/162119 Signed Impressions: Service Date/Time: Tuesday, April 26, 2016 22:53 - CONCLUSION: 1. No evidence of pulmonary embolism. 2. Widespread osteolytic metastatic disease. 3. Multiple small bilateral nodules as above characteristic of metastatic disease. Bilateral hilar adenopathy is also present. Charanjit Petersen MD Chest X-Ray 04/26/162028 Signed Impressions: Service Date/Time: Tuesday, April 26, 2016 20:48 - CONCLUSION: 1. The lungs are grossly clear. 2. Suspected bone lesions as described above. Reed Flores MD Objective Remarks GENERAL: Well-developed well-nourished. In no acute distress. Oriented 3. SKIN: Warm and dry. No lesions noted. HEENT: Normocephalic. Pupils equal and round. Mucous membranes pink and moist. CARDIOVASCULAR: Regular rate and rhythm. No murmur appreciated. RESPIRATORY: No accessory muscle use. Clear to auscultation. Breath sounds equal bilaterally. GASTROINTESTINAL: Abdomen soft, non-tender, nondistended. Bowel sounds x4. MUSCULOSKELETAL: No obvious deformities. No clubbing or cyanosis. No edema. NEUROLOGICAL: Awake and alert. No focal neurological deficits. Moves upper and lower extremities spontaneously. Normal speech. PSYCHIATRIC: Anxious mood and labile affect; insight and judgment fair to normal. A/P Problem List: (1) Dyspnea ICD Code: R06.00 Status: Acute (2) Hypercalcemia ICD Code: E83.52 Status: Acute (3) Metastatic disease ICD Code: C79.9 Status: Acute Assessment and Plan 65 y/o female with no medical history presented with: Acute Dyspnea x 4 days/hypoxia(91% on RA in the ED) Images: CT angiogram shows No PE or infiltrate. Widespread osteolytic metastatic disease, and Multiple small bilateral nodules as above characteristic of metastatic disease. Suspect symptoms related to diffuse and likely malignant pulmonary disease -Consulted Oncology -Oxygen and nebs as needed SIRS: Presented with fever, tachycardia, and tachypnea. No leukocytosis and lactic acid within normal limits. Flu negative. UA no signs of infection. Pulmonary imaging with no signs of infection. -Blood cultures pending. Monitor. Hypercalcemia Likely secondary to lytic bone lesions. Improved from 11.5-10.5 with IVF. -Trend BMP Metastatic disease/ bone pain Reportedly history of stage IV breast cancer per patient's daughter. See pulmonary imaging as above. -Oxycodone and IV Dilaudid for pain management -Oncology and palliative care consulted -Obtain records from previous outpatient oncology evaluation S/P hip fracture -Continue Physical therapy -Case management consult for assistance with discharge disposition. DVT prophylaxis: Lovenox Plan of care discussed with Dr. Vasquez Problem Qualifiers (1) Dyspnea: Qualified Code: R06.00 - Dyspnea, unspecified type John Mart Apr 27, 2016 11:10 am Jorge Vasquez DO Apr 27, 2016 4:41 pm
--- NOTE | 2016-04-27 11:21 | EKG ---
Date Performed: 04/26/2016 Time Performed: 20:26:11 PTAGE: 65 years EKG: Sinus rhythm VENTRICULAR PREMAURE COMPLEX NONSPECIFIC ST-T ABNORMALITY BORDERLINE ECG NO PREVIOUS TRACING DOCTOR: Tim Blunt Interpretating Date/Time 04/27/2016 11:20:51
[2016-04-27] MEDS ORDERED: RESP: ALBUTEROL 2.5 MG/IPRATROPIUM 0.5 MG NEB (PRN) NEB (12:00)
--- NOTE | 2016-04-27 15:56 | PD.CONS ---
Consult Service Palliative Care . Consult Requested By LICO Simon . Primary Care Physician No Primary Care Physician . Reason for Consultation a. To assist with evaluation and management of symptoms including: pain; dyspnea; b. To assist medical decision maker(s) with: better understanding of current medical conditions; weighing benefits/burdens of medical treatment options; making medical treatment decisions. . HPI History of Present Illness Ms. Corbett is a 65 y/o female with metastatic breast cancer who transferred by EMS from [facility] to the ED because of SOB and back pain. Patient's history is challenging as the patient's daughter reports a known history of widely metastatic breast cancer and the patient vehemently denies this. Per the daughter, the patient is delusional in this regard and uses denial as a coping mechanism. Per the patient's daughter, Ms. Corbett had never been to a physician for any type of care until March 2014 when she collapsed due to a pathologic fracture of her right femur. When she was brought in for evaluation following that fall , she was diagnosed with stage IV breast cancer. The patient had a port placed and received some sort of chemotherapy. She underwent 3 weeks of radiation therapy. She was started on Femara. The patient apparently was doing well on Femara and daughter reports tumor markers fell from 330 down to the range of 38- 58. The oncologist at that time estimated life expectancy of somewhere between 2 and 10 years if she continued on the Femara. The patient continued to have pain in the right knee and there was concern for some sort of bone fragment secondary to that pathologic fracture. She went in for surgery, had significant testing and was cleared for surgery. The patient decided that that clearance indicated she was completely free of cancer and has continued to believe so since that time. As a result, the patient stopped taking her Femara and stop returning for follow-up visits to her oncologist. The above treatment took place in [place] where the patient was living at the time. In September 2015 the patient came down to join her daughter in the [place] area. The plan was to set her up with an oncologist and physician in this area. Unfortunately, the patient fell while getting out of the bathtub on 12/14/15 and suffered fractures to her left hip, her left forearm, and her pelvis. At that time metastatic lesions were also noted in the patient's pelvis and spine. Some of these may have been pathologic fractures. I believe she was cared for at [facility]. The patient underwent surgeries on both the hip and forearm. She was sent to [facility] rehabilitation on 01/28/16 where she has been since. She was receiving physical and occupational therapy until she exhausted her insurance for this purpose. She reportedly has been able to ambulate with a walker and standby assistance. She dresses herself, toilets herself, feed herself, and can be herself with minimal assistance. In the nursing facility, the patient has complained of severe back pain and pain in the lateral right torso. She chooses to describe this as "surface pain. " She reports that her 10 mg Percocet tablets will take her from a #10 pain down to a #6 pain but will only last for about an hour. She feels undermedicated there and is angry that the staff does not listen to her. In describing her experience there she broke into tears several times. Both at her daughter's house and at the nursing facility she is attributing most of her back pain to poor mattresses. She has already been through several mattresses. She is somewhat fixated on this topic and repeatedly talks about the mattresses when trying to get a history. The patient reports she has lost 30- 40 lbs since her fall in December; her daughter thinks it is probably 50-60 lbs. The patient is not absolutely certain she had cancer and is convinced that if she did, she is now cured. She claims she was on the Femara from April through December 2014. In December, "the Lord spoke to me and told me to ask the doctor what was the one test that could prove I don't have cancer." She was told to ask for a PET scan. She said that took place in that she was free of cancer. The patient's daughter denies this. The patient herself shows some evidence of hyper religiosity several times in answering questions. When I ask for more information about her beliefs she clearly has great elvis but also believes that people should see doctors and receive medical care as well. Initial vital signs in the emergency department were as follows: Temperature 100.6; pulse 100; blood pressure 196/119; pulse oximetry 98% on O2 via nasal cannula at 2 L a minute Initial physical examination by the emergency library circulation department chief revealed the following: Patient was in mild to moderate distress. There is poor skin turgor. Cardiovascular, respiratory, and abdominal exams were unremarkable. It was bilateral nontender one to 2+ pitting edema. There was tenderness along the left wrist where a splint was in place. There is generalized thoracic discomfort with palpation area. No other abnormalities were noted. Initial diagnostic testing revealed the following: * CBC showed WBC 5.5; hemoglobin 11.4; platelet count 191 * Coagulation profile showed PT 11.6; INR 1.0; PTT 26.8 * Chemistry profile showed sodium 133; potassium 2.8; chloride 100; CO2 24.6; anion gap 8; BUN 19; creatinine 0.4; GFR 68; glucose 81; lactic acid 1.4; calcium 11.5; magnesium 2.0 * Liver function tests show total bilirubin 1.0; AST 71; ALT 15; alkaline phosphatase 424; total protein 8.8; albumin 3.8 * Cardiac serology showed total CK of 55; troponin was less than 0.02 * Urinalysis was unremarkable. * Chest x-ray showed lungs to be grossly clear. Much of the fourth rib appeared to be absent. There was a focal bone lesion at the medial left fourth rib. There was a questionable irregularity at the right ninth rib. There was a compression deformity of the T11 vertebral body. * CT angiography revealed no evidence of pulmonary embolism. However widespread osteolytic metastatic disease was noted. There were also multiple small bilateral pulmonary nodules,bilateral hilar adenopathy and bilateral axillary adenopathy. . In the emergency department, when taken off oxygen, the patient's oxygen saturation would drop to 91%. She was maintained on oxygen via nasal cannula. The patient stayed in the emergency department under observation status. She was given IV fluids for her hypercalcemia. The hospitalist team and medical oncology were consulted. At the time of my visit medical oncology had not yet seen the patient. At time of my visit, the patient was complaining of #8 pain in the upper lateral right thorax. She was not aware of any activity or movement that would mitigate or exacerbate the pain. She was waiting for one of her pain pills. She reported having severe back pain at the nursing facility but not so much here. She tells me her shortness of breath that she had earlier off oxygen must of been due to an anxiety attack. . Function/Cognitive Trajectory As noted above, the patient has been either in the hospital or the nursing facility since her fall of 12/14/15. She has been at [facility] since 01/28/2016. She has been able to ambulate with a walker with standby assistance. She dresses herself, toilets herself, feed herself and with minimal assistance is able to bathe herself. She has experienced somewhere between 8:30 and 60 pound weight loss since December 2015. She attributes this mostly to the poor food she is eating at the nursing facility. . Review of Systems Constitutional: COMPLAINS OF: Fatigue, Fever, Weight loss, Change in appetite, Pain, Generalized weakness, DENIES: Weight gain Endocrine: DENIES: Polydipsia, Polyuria, Polyphagia Eyes: COMPLAINS OF: Vision loss (wears glasses), DENIES: Double Vision Ears, nose, mouth, throat: DENIES: Tinnitus, Hearing loss, Throat pain, Running Nose, Epistaxis Respiratory: COMPLAINS OF: Shortness of breath, DENIES: Cough, Snoring, Wheezing, Hemoptysis, Sputum production Cardiovascular: COMPLAINS OF: Dyspnea on Exertion, Lower Extremity Edema, DENIES: Chest pain, Palpitations, Syncope Gastrointestinal: DENIES: Abdominal pain, Black stools, Bloody stools, Constipation, Diarrhea, Nausea, Vomiting, Difficulty Swallowing, Vomiting blood Genitourinary: DENIES: Urinary frequency, Urinary incontinence, Hematuria Musculoskeletal: COMPLAINS OF: Joint pain, Muscle aches, Back pain Integumentary: COMPLAINS OF: Tumors, DENIES: Rash Hematologic/Lymphatics: COMPLAINS OF: Lymphadenopathy, DENIES: Bruising Immunologic/Allergic: DENIES: Urticaria Neurologic: COMPLAINS OF: Abnormal gait, Paresthesias, Poor Balance, DENIES: Seizures, Tremor Psychiatric: COMPLAINS OF: Anxiety, Depression, Delusions, DENIES: Confusion, Mood changes, Hallucinations, Suicidal Ideation Past Family Social History Coded Allergies: No Known Allergies (Unverified , 04/26/16) Past Medical History * Metastatic breast cancer with history of chemotherapy, radiation therapy, hormonal therapy and now with recent pathologic fractures. * Depression * Anxiety * Neuropathy -- mostly affecting left foot . Past Surgical History * Surgical repair of right hip fracture March 2014 * Arthroscopic type knee surgery in late 2014 * [id number] placement * Left hip replacement December 2015 * Surgery for right forearm fracture December 2015 . Reported Medications Prehospital medications at the nursing facility included the following: * Aspirin 81 mg; one by mouth daily * Dulcolax suppository; one rectally daily as needed * Marrow lacksone scoopful daily * Ibuprofen 400 mg one by mouth every 6 hours when necessary pain * Percocet 10/325; one by mouth every 8 hours [id number] * [place] 10/325; one by mouth every 6 hours as needed for breakthrough pain * Albuterol nebulizer once every 6 hours as needed for dyspnea . Current Medications Medications (Trade) Dose Ordered Sig/Jaelyn Route Start Time Stop Time Status Last Admin (NS Flush) 2 ml UNSCH PRN FLUSH 04/26/16 23:45 04/27/16 06:49 (NS Flush) 2 ml BID FLUSH 04/27/16 09:00 04/27/16 08:47 (Lovenox Inj) 40 mg Q24H SQ 04/27/16 09:00 04/27/16 08:48 (Narcan Inj) 0.4 mg UNSCH PRN IV 04/26/16 23:45 (Dilaudid Pf Inj) 0.2 mg Q4H PRN IV PUSH 04/26/16 23:45 04/27/16 14:22 (Flu (Quadrivalent) Vaccine Inj) 0.5 ml ONCE ONCE IM 04/28/16 10:00 04/28/16 10:01 (Aspirin Chew) 81 mg DAILY CHEW 04/27/16 09:00 04/27/16 08:47 (Dulcolax Supp) 10 mg DAILY PRN RECTAL 04/27/16 06:30 (Vasotec Inj) 2.5 mg Q6H PRN IV PUSH 04/27/16 06:30 04/27/16 06:50 (Percocet 10-325 Mg) 1 tab Q8HR PRN PO 04/27/16 08:15 04/27/16 08:47 (Colace) 100 mg BID PO 04/27/16 09:00 04/27/16 08:47 . Family History The patient has little history about her parents. Apparently her mother when she was 11 years old and she was raised by distant family members. She has one sister that she is aware of who lives in [place]. Patient is unaware of any illnesses that run in the family.. Substance Use Tobacco: Quit smoking 1998 Alcohol: No history of abuse Prescription med abuse: No history of abuse Illicits: No known use of illicits . Psychosocial History Patient is originally from [place]. She lived in [place] for approximately 10 years and then was living in [place] prior to moving down to join her daughter in [place] in September 2015. The patient reports she graduated from high school and completed approximately 2 years of college. She did not work outside of the home. 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 The patient has one daughter -- Moses Corbett -- who lives in [place] and works for a bank. Kylee's daughter -- the patient's only grandchild -- is 10 y/o. The patient gave another daughter up for adoption when she was very young. She has recently re-connected with that daughter. The patient was getting ready to move to an [facility] near her daughter in [place]. . Spiritual/Cultural Factors Prior the patient reports that episcopalian and spirituality are very important to her. She was quick to tell me she is not part of any organized episcopalian. 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 She tells me she was fortunate enough to personally meet an Apostle earlier in her life. She has strong elvis but also believes that people should seek help from doctors when they are ill and not simply put their elvis in God. Patient declines hospital testing tech. . Living Will: Never completed Health Care Surrogate: Never completed Durable Power of Small Piece Cutter: Never completed Date completed: Advanced her Actos never completed. . Health Care Surrogate(s): No written designation of health care surrogacy. . Documented care wishes: No written documentation of health care wishes/preferences . Today's verbally stated goals: Patient's goals are a little hard to understand. She does not believe she has cancer. If she does have cancer she is open to considering treatment it's that she does not want chemotherapy. She remains full code. She would like her daughter to be her healthcare surrogate. . Family/friends goals: I spoke with the patient's daughter by phone. Daughter wants to know options for treatment and then will help the patient make a decision. . Ethical and Legal Issues Because of the patient's apparent delusion regarding her underlying cancer and I do not believe she is capacitated to make her own health care decisions on her own. I would recommend shared decision-making with the patient and the patient's daughter. . Physical Exam Vital Signs Date Time Temp Pulse Resp B/P Pulse Ox O2 Delivery O2 Flow Rate FiO2 04/27/16 15:01 97.2 72 18 106/62 100 04/27/16 12:00 97.9 72 18 100/58 100 04/27/16 12:00 97.9 72 18 100/58 100 04/27/16 09:54 20 04/27/16 08:00 98.0 71 18 117/62 100 04/27/16 06:06 97.7 77 18 184/92 97 04/27/16 03:30 78 04/27/16 02:20 84 04/27/16 00:30 78 18 94 Room Air 04/26/16 23:53 95 04/26/16 21:49 Room Air 04/26/16 21:47 93 30 136/69 95 Room Air 04/26/16 20:25 100.6 100 24 196/119 98 04/26/16 20:25 24 98 Nasal Cannula 2 04/26/16 20:25 98 Nasal Cannula 2 . Exam CONSTITUTIONAL/GENERAL: This is an adequately nourished patient who grimaces when she re-positions herself in bed. TUBES/LINES/DRAINS: Heplock IVs in both forearms. SKIN: No jaundice, rashes, or lesions. No wounds seen anteriorly. Skin temperature appropriate. Not diaphoretic. HEAD: Atraumatic. Normocephalic. EYES: Pupils equal and round and reactive. Extraocular motions intact. No scleral icterus. No injection or drainage. Fundi not examined. ENT: Hearing grossly normal. Nose without bleeding or purulent drainage. Throat without visible erythema, exudates, masses, or lesions. NECK: Trachea midline. Supple, nontender. No palpable thyroid enlargement or nodularity. CARDIOVASCULAR: Regular rate and rhythm without murmurs, gallops, or rubs. No JVD. Peripheral pulses symmetric. RESPIRATORY/CHEST: Symmetric, unlabored respirations. Clear to auscultation. Breath sounds equal bilaterally. No wheezes, rales, or rhonchi. GASTROINTESTINAL: Abdomen soft, non-tender, nondistended. No hepato-splenomegaly , or palpable masses. No guarding. Bowel sounds present. GENITOURINARY: Without palpable bladder distension. MUSCULOSKELETAL: Extremities without clubbing, cyanosis, or edema. No joint tenderness or effusion noted. No calf tenderness. No mottling . LYMPHATICS: No palpable cervical, axillary, or supraclavicular adenopathy. NEUROLOGICAL: Awake and alert. Motor and sensory grossly within normal limits. Follows commands. Cognitively sharp. Moves all extremities. PSYCHIATRIC: No obvious anxiety/depression. Occasional tears as she describes her experience in the nursing facility. Some evidence of hyper-religiosity as she speaks. Appears in complete denial regarding her widely metastatic cancer. . Diagnostic Tests Laboratory Laboratory Tests Test 04/26/16 04/26/16 04/27/16 20:35 21:31 05:46 White Blood Count 5.5 TH/MM3 4.4 TH/MM3 (4.0-11.0) (4.0-11.0) Red Blood Count 3.82 MIL/MM3 3.27 MIL/MM3 (4.00-5.30) (4.00-5.30) Hemoglobin 11.4 GM/DL 9.8 GM/DL (11.6-15.3) (11.6-15.3) Hematocrit 34.1 % 29.5 % (35.0-46.0) (35.0-46.0) Mean Corpuscular Volume 89.2 FL 90.2 FL (80.0-100.0) (80.0-100.0) Mean Corpuscular Hemoglobin 29.9 PG 29.8 PG (27.0-34.0) (27.0-34.0) Mean Corpuscular Hemoglobin 33.5 % 33.1 % Concent (32.0-36.0) (32.0-36.0) Red Cell Distribution Width 17.2 % 16.7 % (11.6-17.2) (11.6-17.2) Platelet Count 191 TH/MM3 165 TH/MM3 (150-450) (150-450) Mean Platelet Volume 7.9 FL 7.8 FL (7.0-11.0) (7.0-11.0) Neutrophils (%) (Auto) 79.2 % 73.3 % (16.0-70.0) (16.0-70.0) Lymphocytes (%) (Auto) 12.1 % 14.0 % (9.0-44.0) (9.0-44.0) Monocytes (%) (Auto) 7.9 % (0.0-8.0) 10.7 % (0.0-8.0) Eosinophils (%) (Auto) 0.5 % (0.0-4.0) 0.8 % (0.0-4.0) Basophils (%) (Auto) 0.3 % (0.0-2.0) 1.2 % (0.0-2.0) Neutrophils # (Auto) 4.4 TH/MM3 3.2 TH/MM3 (1.8-7.7) (1.8-7.7) Lymphocytes # (Auto) 0.7 TH/MM3 0.6 TH/MM3 (1.0-4.8) (1.0-4.8) Monocytes # (Auto) 0.4 TH/MM3 0.5 TH/MM3 (0-0.9) (0-0.9) Eosinophils # (Auto) 0.0 TH/MM3 0.0 TH/MM3 (0-0.4) (0-0.4) Basophils # (Auto) 0.0 TH/MM3 0.1 TH/MM3 (0-0.2) (0-0.2) CBC Comment DIFF FINAL DIFF FINAL Differential Comment Prothrombin Time 11.6 SEC (9.8-11.6) Prothromb Time International 1.0 RATIO Ratio Activated Partial 26.8 SEC Thromboplast Time (24.3-30.1) Sodium Level 133 MEQ/L 138 MEQ/L (136-145) (136-145) Potassium Level 3.8 MEQ/L 3.7 MEQ/L (3.5-5.1) (3.5-5.1) Chloride Level 100 MEQ/L 104 MEQ/L (98-107) (98-107) Carbon Dioxide Level 24.6 MEQ/L 24.2 MEQ/L (21.0-32.0) (21.0-32.0) Anion Gap 8 MEQ/L (5-15) 10 MEQ/L (5-15) Blood Urea Nitrogen 19 MG/DL (7-18) 15 MG/DL (7-18) Creatinine 0.84 MG/DL 0.68 MG/DL (0.50-1.00) (0.50-1.00) Estimat Glomerular Filtration 68 ML/MIN (>89) 87 ML/MIN (>89) Rate Random Glucose 81 MG/DL 75 MG/DL (74-106) (74-106) Lactic Acid Level 1.4 mmol/L (0.4-2.0) Calcium Level 11.5 MG/DL 10.5 MG/DL (8.5-10.1) (8.5-10.1) Magnesium Level 2.0 MG/DL (1.5-2.5) Total Bilirubin 1.0 MG/DL (0.2-1.0) Aspartate Amino Transf 71 U/L (15-37) (AST/SGOT) Alanine Aminotransferase 15 U/L (10-53) (ALT/SGPT) Alkaline Phosphatase 424 U/L (45-117) Total Creatine Kinase 55 U/L (26-192) Troponin I LESS THAN 0.02 NG/ML (0.02-0.05) B-Type Natriuretic Peptide 37 PG/ML (0-100) Total Protein 8.8 GM/DL (6.4-8.2) Albumin 3.8 GM/DL (3.4-5.0) Urine Color YELLOW (YELLW/STRAW) Urine Turbidity CLEAR (CLEAR) Urine pH 5.0 (5.0-8.5) Urine Specific [place] 1.028 (1.002-1.035) Urine Protein TRACE mg/dL (NEG-TRACE) Urine Glucose (UA) NEG mg/dL (NEG) Urine Ketones 40 mg/dL (NEG) Urine Occult Blood NEG (NEG) Urine Nitrite NEG (NEG) Urine Bilirubin NEG (NEG) Urine Urobilinogen 2.0 MG/DL (LESS THAN 2.0) Urine Leukocyte Esterase NEG (NEG) Urine RBC 1 /hpf (0-3) Urine WBC LESS THAN 1 /hpf (0-5) Urine Squamous Epithelial <1 /hpf (0-5) Cells Urine Mucus FEW /lpf (OCC) Microscopic Urinalysis Comment CULT NOT INDICATED . Result Diagram: 04/27/16 0546 04/27/16 0546 Microbiology Microbiology Date/Time Procedure Status Source Growth 04/26/16 20:30 Aerobic Blood Culture - Preliminary Resulted Blood Peripheral NO GROWTH IN 1 DAY 04/26/16 20:30 Anaerobic Blood Culture - Final Resulted Blood Peripheral PATIENT DISCHARGED FROM ED. AEROBIC ... 04/26/16 20:30 Aerobic Blood Culture - Preliminary Resulted Blood Peripheral NO GROWTH IN 1 DAY 04/26/16 20:30 Anaerobic Blood Culture - Preliminary Resulted Blood Peripheral NO GROWTH IN 1 DAY 04/26/16 20:35 Influenza Types A,B Antigen (RUTHANN) - Final Complete Nasal Washing NEGATIVE FOR FLU A AND B ANTIGEN.... . Imaging Last Impressions CT Angiography 04/26/162119 Signed Impressions: Service Date/Time: Tuesday, April 26, 2016 22:53 - CONCLUSION: 1. No evidence of pulmonary embolism. 2. Widespread osteolytic metastatic disease. 3. Multiple small bilateral nodules as above characteristic of metastatic disease. Bilateral hilar adenopathy is also present. Charanjit Petersen MD Chest X-Ray 04/26/162028 Signed Impressions: Service Date/Time: Tuesday, April 26, 2016 20:48 - CONCLUSION: 1. The lungs are grossly clear. 2. Suspected bone lesions as described above. eRed Flores MD . Patient/Family Conference Present at Family Conference: Spoke with patient at bedside for 30 minutes over and above basic history. Spoke with patient's daughter by phone for 20 minutes. . Family Conference Time (mins): 45 Family Conference Location: Bedside, Telephone Issues Discussed: * Palliative care role, purpose, approach * Additional medical, psychosocial, and spiritual history * Patients general health, functional status, and cognitive changes in the months leading up to the current hospitalization * Patient/family understanding of the current medical problems * Patient/family understanding of prognosis * Patients goals of care as best understood from conversations and/or values * Likely scenarios comparing ongoing aggressive care with a transition to comfort measures only * Questions answered to the best of my ability * Palliative care contact information provided . Assessment and Plan Disease Oriented Problem List: (1) Metastatic breast cancer Comment: Per daughter, diagnosed in Mar 2014 when patient presented with a pathologic fracture. Underwent chemo, radiation, Femara treatment. Daughter reports patient has decided she is cured and has been in denial and stopped taking her medications or going for f/u visits. Pt now with bone and lung mets. . (2) Bone metastases (3) Lung metastases (4) Hypercalcemia (5) Pathological fracture (6) Peripheral neuropathy Comment: Left foot. (7) Hypoxia Symptom Scale: (1) Pain Comment: Pain is usually in upper right lateral torso and across low back. Patient attributes most of her pain to "bad mattresses" even though she has tried several different mattresses. She refuses to believe it is due to her jeremy mets. Percocet 10 brings pain level from 10 to 6 for about an hour. . (2) Dyspnea 0-10 Scale: Unable to quantify Comment: Comfortable on 02 via nasal cannula at 2 L /min. Has multiple bilateral pulmonary nodules. . (3) Weight loss 0-10 Scale: Unable to quantify Comment: Has lost 30-60 lbs since December 2015. . (4) Delusion 0-10 Scale: Unable to quantify Comment: Pt , per daughter, is fully delusional regarding her cancer. She believes she has been cured. . Pertinent Non-Medical Issues Psychosocial: Has daughter who lives in [place] and a granddaughter. Little other psychosocial support. There is another daughter she gave up for adoption that she has re-connected with. Spiritual: Patient is hyper-lutheran. 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 She has her own "ministry" on [employer]. She declines hospital testing tech. Legal: No completed advance directives. Daughter would serve as proxy if patient deemed incapacitated. Ethical issues impacting care: Patient's capacity is in question. She appears delusional regarding her cancer diagnosis. Her hyper-religiosity is also a concern. I would recommend that we use "combined decision-making" as much as possible using daughter with patient to make any major healthcare decisions. . Important Contacts * Moses Corbett (daughter and proxy) [phone] . Prognosis Patient has widely metastatic breast cancer. She has had complications including pathologic fractures, hypercalcemia, and significant weight loss. Await oncology opinion on options, but treatment may be quite challenging given patient's beliefs. If patient declines cancer directed therapies, she would be very appropriate for hospice. . . Code Status: Full Code Plan == Code Status: Full code. If patient opts against cancer directed treatments will re-address code status. == Decision making: As patient appears delusional regarding her cancer diagnosis and also expresses some hyper-religiosity, I am reluctant to deem her fully capacitated to make all of her own health care decisions. Instead, I would recommend "shared decision making" whether patient is making important healthcare decisions in cooperation with her daughter. Should patient become fully capacitated, daughter is the proxy. == Goals of medical treatment: Patient's goals are ambivalent at this time. She lives in full denial regarding her cancer. However, when I ask her if the doctor's decide that there is still cancer there , would she want to treat it, she says "Yes, but I would not want chemotherapy." We will need oncology to speak with patient and daughter regarding options, benefits/burdens of those options so they can make a decision. == Pain: Patient had been receiving scheduled Percocet 10 q 8 hours without adequate relief in the nursing facility. I would recommend scheduling 5 mg of methadone q 12 hours instead and giving her 10 mg Percocet q 4 hours prn. Since some of her pain is likely bone pain, she might also benefit from dexamethasone as an adjuvant . Would start at 2 mg po Q AM == Hypercalcemia: being treated with hydration. No further recommendation. == Weight loss: Patient is not yet bothered by this. No treatment recommendation at this time. == Psych: Hypercalcemia may be responsible for some of her apparent psych issues. However, per daughter, most of these are longstanding. Depending on goals, I would recommend starting patient on low dose neuroleptic -- e.g Quetiapine 25 po QD. This may help with sleep, anxiety, hyper-religiosity, and delusions. Would up titrate slowly. If psych issues are greatly interfering with care, would consider a psych consult. == Neuropathy: Patient may find some benefit from neuropathy with methadone recommended above. Could always add neurontin if needed. == Await oncology consult . Once oncologist has explored options with family we will better be able to determine direction of the case. If there is a desire for ongoing cancer directed treatment and medical monitoring, then patient will probably return to nursing facility and get outpatient oncology treatment. If patient/daughter decide on comfort oriented treatments, would recommend enrollment with hospice and then discharge under hospice care. == Will want to explore resuscitation status once again after oncology conversation has taken place. == Palliative care will continue to follow to assist with symptom management and to further clarify goals of medical treatment as the clinical case evolves. . Time Spent Total Floor Time (mins): 80 (Total floor time included chart review; patient exam; in-persona collaboration with the LICO Simon; bedside conference with patient; telephone conference with daughter. ) Face to Face Time (mins): 30 >50% Counseling/Coord of Care: Yes Thank you for the opportunity to participate in the care of Ms. Corbett. . Attestation To help prompt me to consider important information that might be impacting today's encounter and assessment, information from prior notes written by myself or my colleagues may have been "brought forward" into today's note. My signature on this note, however, is an attestation that I personally performed the exam, history, and/or decision-making noted today, and, unless otherwise indicated, the interactions with patient, family, and staff as well as the review of records all occurred today. I also attest that the listed assessment and stated plan reflect my best clinical judgment today based on the combination of historical information, prior notes, and today's exam/ interactions. When time spent is documented, it refers only to time spent today by the signer, or if indicated, combined time spent today by collaborating physician/nurse practitioner. . Yogi Borden MD Apr 27, 2016 15:55
[2016-04-27] MEDS ORDERED: IOHEXOL 350 MG/ML 10 ML VIAL (for RAD DIAG) IV ONE (17:11)
[2016-04-27] MEDS: oxyCODONE/ACETAMINOPHEN 10 MG/325 MG TAB PO PRN (18:23)
--- NOTE | 2016-04-27 18:49 | RADRPT ---
EXAM DATE/TIME: 04/27/2016 17:01 [facility] COMPARISON: CT PULMONARY ANGIOGRAM, April 26, 2016, 22:53. INDICATIONS : Abdominal pain. Evaluation for malignancy. IV CONTRAST: 100 cc Omnipaque 350 (iohexol) IV ORAL CONTRAST: Prescribed oral contrast ingested. RADIATION DOSE: 17.97 CTDIvol (mGy) MEDICAL HISTORY : None documented. SURGICAL HISTORY : None. ENCOUNTER: Initial ACUITY: 1 day PAIN SCALE: 4/10 LOCATION: Bilateral lower quadrant TECHNIQUE: Volumetric scanning of the abdomen and pelvis was performed. Using automated exposure control and adjustment of the mA and/or kV according to patient size, radiation dose was kept as low as reasonably achievable to obtain optimal diagnostic quality images. FINDINGS: The liver appears normal. There are calcified granulomas seen in the spleen. No soft tissue masses are seen in the spleen. The pancreas and adrenal glands are normal. Both kidneys appea r grossly normal. The patient does appear to have a gallstone within the gallbladder. There is some thickening of the sigmoid colon and rectum. Much of this may be secondary to lack of distention. S ome degree of underlying colitis cannot be excluded. The remaining aspects of the bowel appear gross ly normal for a standard CT examination. There does appear to be a 2.4 cm mass in the upper outer left breast region. This needs to be viewed with suspicion. There are widespread sclerotic lesions throughout all the visualized bony structures. There are rods through the proximal femurs bilaterally. There does appear to be increased soft tissue density aroun d the left proximal femur. This could be secondary to the fracture if the fracture is recent. The p atient does appear to have a track seen along the lateral left upper thigh region likely from the alfonso or surgery. There is collapse of the T11 vertebral body. The T11 vertebral body has lost at least 50 % of its original height. There are mild bilateral pleural effusions. Atherosclerotic calcification s are seen throughout the arterial system. No aneurysm is seen. CONCLUSION: 1. 2.4 cm left breast mass that needs to be viewed with suspicion. 2. Widespread sclerotic lesions throughout all the visualized bony structures concerning for widespre ad metastatic disease. 3. Increased density seen around the left proximal femur. The patient does have an acute fracture in this region treated with surgical hardware. The increased density can all be the sequelae of the re cent fracture if the fracture truly is recent. It appears acute on the CT. There also appears to be a track presumably from the prior surgery at the lateral soft tissues. 4. Gallstone. 5. Mild thickening of the sigmoid colon and rectum. This may be secondary to lack of distention. Some degree of underlying mild colitis cannot be excluded in the correct clinical situation. Reed Flores MD on April 27, 2016 at 18:14 Board Certified Radiologist. This report was verified electronically.
[2016-04-28] MEDS: oxyCODONE/ACETAMINOPHEN 10 MG/325 MG TAB PO PRN ×2 (01:00→08:51)
[2016-04-28 01:04] VITALS: BP 112/61; PULSE 73; RESP 18; TEMP 98.2; O2SAT 97
[2016-04-28 04:09] VITALS: O2SAT 99
[2016-04-28 05:16] VITALS: BP 118/67; PULSE 67; RESP 18; TEMP 98.1; O2SAT 100
[2016-04-28 07:29] VITALS: BP 118/68; PULSE 70; RESP 18; TEMP 96.4; O2SAT 95
[2016-04-28] MEDS: DOCUSATE SODIUM 100 MG CAP PO SCH (07:44)
[2016-04-28 08:47] VITALS: O2SAT 94
[2016-04-28] MEDS: SODIUM CHLORIDE 0.9% FLUSH 5 ML FLUSH FLUSH SCH (08:50)
[2016-04-28] MEDS: ENOXAPARIN SODIUM 40 MG/0.4 ML SYRINGE SQ SCH (08:52)
[2016-04-28] MEDS: ASPIRIN 81 MG CHEW TAB CHEW SCH (08:54)
[2016-04-28] MEDS ORDERED: DEXAMETHASONE 1.5 MG TAB PO SCH (09:00)
[2016-04-28] MEDS ORDERED: DILA2TAB2 PO (09:06)
[2016-04-28] MEDS ORDERED: FEMA2.5T PO (09:06)
[2016-04-28] MEDS ORDERED: SERO25TA PO (09:06)
--- NOTE | 2016-04-28 09:08 | HHI.PR ---
Subjective Remarks Follow-up for back pain and metastatic lung cancer. Discussed with Dr. Sahu , the patient declined chemotherapy or hospice, will go back on Femara and follow-up with him. Oncology recommended increasing pain management. The patient continues to complain of intermittent back pain. She is asking for a similar hospital bed at her SNF to help with her back pain. No other acute complaints today. Objective Vitals Vital Signs Date Time Temp Pulse Resp B/P Pulse Ox O2 Delivery O2 Flow Rate FiO2 04/28/16 07:29 96.4 70 18 118/68 95 04/28/16 05:16 98.1 67 18 118/67 100 04/28/16 04:09 99 04/28/16 01:04 98.2 73 18 112/61 97 04/27/16 21:34 98.5 70 16 96/55 98 04/27/16 21:03 72 04/27/16 19:25 18 04/27/16 15:12 18 04/27/16 15:01 97.2 72 18 106/62 100 04/27/16 12:00 97.9 72 18 100/58 100 04/27/16 12:00 97.9 72 18 100/58 100 04/27/16 09:54 20 Result Diagram: 04/27/16 0546 04/27/16 0546 Imaging Last Impressions Abdomen/Pelvis CT 04/27/16 0000 Signed Impressions: Service Date/Time: Wednesday, April 27, 2016 17:01 - CONCLUSION: 1. 2.4 cm left breast mass that needs to be viewed with suspicion. 2. Widespread sclerotic lesions throughout all the visualized bony structures concerning for widespread metastatic disease. 3. Increased density seen around the left proximal femur. The patient does have an acute fracture in this region treated with surgical hardware. The increased density can all be the sequelae of the recent fracture if the fracture truly is recent. It appears acute on the CT. There also appears to be a track presumably from the prior surgery at the lateral soft tissues. 4. Gallstone. 5. Mild thickening of the sigmoid colon and rectum. This may be secondary to lack of distention. Some degree of underlying mild colitis cannot be excluded in the correct clinical situation. Reed Flores MD CT Angiography 04/26/160 Signed Impressions: Service Date/Time: Tuesday, April 26, 2016 22:53 - CONCLUSION: 1. No evidence of pulmonary embolism. 2. Widespread osteolytic metastatic disease. 3. Multiple small bilateral nodules as above characteristic of metastatic disease. Bilateral hilar adenopathy is also present. Charanjit Petersen MD Chest X-Ray 04/26/162028 Signed Impressions: Service Date/Time: Tuesday, April 26, 2016 20:48 - CONCLUSION: 1. The lungs are grossly clear. 2. Suspected bone lesions as described above. Reed Flores MD Objective Remarks GENERAL: Well-developed well-nourished. In no acute distress. SKIN: Warm and dry. No lesions noted. HEENT: Normocephalic. Pupils equal and round. Mucous membranes pink and moist. CARDIOVASCULAR: Regular rate and rhythm. No murmur appreciated. RESPIRATORY: No accessory muscle use. Clear to auscultation. Breath sounds equal bilaterally. GASTROINTESTINAL: Abdomen soft, non-tender, nondistended. Bowel sounds x4. MUSCULOSKELETAL: No obvious deformities. No clubbing or cyanosis. No edema. NEUROLOGICAL: Awake and alert. No focal neurological deficits. Moves upper and lower extremities spontaneously. Normal speech. PSYCHIATRIC: Slightly anxious mood and labile affect; insight and judgment fair to normal. A/P Problem List: (1) Dyspnea ICD Code: R06.00 Status: Acute (2) Hypercalcemia ICD Code: E83.52 Status: Acute (3) Metastatic disease ICD Code: C79.9 Status: Acute Assessment and Plan 65 y/o female with no medical history presented with: Acute Dyspnea x 4 days/hypoxia(91% on RA in the ED) Images: CT angiogram shows No PE or infiltrate. Widespread osteolytic metastatic disease, and Multiple small bilateral nodules as above characteristic of metastatic disease. Suspect symptoms related to diffuse and likely malignant pulmonary disease Currently satting well on room air. -Consulted Oncology -Oxygen and nebs as needed SIRS: Presented with fever, tachycardia, and tachypnea. No leukocytosis and lactic acid within normal limits. Flu negative. UA no signs of infection. Pulmonary imaging with no signs of infection. -Blood cultures with NGTD. Hypercalcemia Likely secondary to lytic bone lesions. Improved from 11.5-10.5 with IVF. -Monitor Metastatic disease/ bone pain Reportedly history of stage IV breast cancer per patient's daughter. See pulmonary imaging as above. -Discussed with oncology, recommended oral Dilaudid as needed for pain management -Oncology and palliative care consulted, appreciate input -Attempt to obtain records from previous outpatient oncology evaluation -Oncology recommended resuming Femara outpatient follow-up -Seroquel at bedtime for sleep and anxiety as recommended by palliative care S/P hip fracture -Continue Physical therapy -Case management consult for assistance with discharge disposition. DVT prophylaxis: Lovenox Written by John Mart, acting as scribe for Dr. Vasquez on 04/28/16 at 09:03. The documentation accurately reflects the work performed [id number] by me on at 09:03. Discharge Planning Discharge patient to SNF Condition on discharge: Improved Heart healthy Diet as tolerated Regular activity Rx written: Seroquel, Dilaudid, Femara Follow-up with primary care physician and oncology Problem Qualifiers (1) Dyspnea: Qualified Code: R06.00 - Dyspnea, unspecified type John Mart Apr 28, 2016 09:08 Jorge Vasquez DO Apr 28, 2016 20:26
[2016-04-28] MEDS ORDERED: INFLUENZA VIRUS VACCINE (QUADRIVALENT) 0.5 ML SYR IM ONE (10:00)
[2016-04-28 10:47] VITALS: BP 114/60; PULSE 77; RESP 19; TEMP 96.6; O2SAT 92
--- NOTE | 2016-04-29 08:22 | MB ---
cc: MARIANNE ALCANTARA M.D. DATE OF CONSULTATION 04/28/2016 REASON FOR CONSULTATION Consult requested by hospitalist for evaluation of metastatic disease. HISTORY OF PRESENT ILLNESS This is a 65-year-old female. She resides at the [facility]. She was brought in the emergency room by the paramedics after she was complaining of shortness of breath. The patient had a CT angiogram on arrival which did not show any pulmonary embolism. However, it showed widespread osteolytic metastatic disease. There are multiple small bilateral pulmonary nodules noted consistent with metastatic disease. She also has bilateral hilar lymphadenopathy as well. I have been asked to see the patient for further evaluation. The patient has a history of pathological fracture of the right femur that happened in March 2014. At that time, she was found to have left breast cancer. The details of those are not available. The patient had an Qyzlsj-P-Ikjo placed, but she never received chemotherapy. Subsequently, the Yrvbko-W-Zvik was removed. She was treated with Femara. In December of 2014, she was having right knee pain. The was attributed to the pathological fracture of the right femur. She underwent surgery on the right knee. She had arthroscopic surgery. She stated at that time she was told that she is cancer free and she stopped taking the Femara. All treatments were in [place]. Last year in August she moved to [place] to live with her daughter in [place]. Last January, the patient fell and broke her left hip and left forearm. She was admitted at [facility]. She saw an oncologist who recommended that she should resume Femara. When the patient was discharge, she was unable to see the oncologist due to the insurance. She is telling me that she had Medicaid of [place] and was not transferred to [place] as yet. The patient was placed into [facility]. The patient has been getting physical therapy and she is able to walk with a walker. She is able to do the activities of daily living. She is not bed confined or wheelchair dependent. The patient states that she takes Percocet 10 mg per the snf which does not control her pain. She has been complaining of severe back pain which she attributed to her mattress. She states that she has had five mattresses changed, but she continues to have the back pain. She has anorexia and she is losing weight. She has lost 60 pounds in the last six months or so. PAST MEDICAL HISTORY 1. Metastatic breast cancer which was diagnosed in to March 2014. 2. Depression 3. Anxiety PAST SURGICAL HISTORY 1. Repair of the right femur fracture which was pathological. 2. She also has an Qbhixr-Z-Tqxd placement which was removed Subsequently. 3. She had arthroscopic right knee surgery in December of 2014. 4. She had a left hip surgery and left forearm surgery in December 2015. ALLERGIES None. MEDICATIONS The patient is on: 1. Percocet 10 2. Aspirin FAMILY HISTORY Noncontributory SOCIAL HISTORY The patient used to smoke cigarettes, quit a long time ago. She does not drink alcohol. She lives in [facility]. PHYSICAL EXAM This is a well-developed, chronically ill-appearing, white female in no apparent distress. VITAL SIGNS: Temperature 97.2, heart is 72, blood pressure 106/62, O2 saturation 100%. HEENT: PERRLA, EOMI, anicteric. No oral lesions are noted. NECK: Supple. There is no cervical, supraclavicular, axillary lymphadenopathy noted. BREASTS: Right breast, no masses noted. Left breast, a large mass noted in the left upper outer quadrant with dimpling of the skin. The patient was examined in the presence of her nurse. ABDOMEN: Soft and nontender. No hepatosplenomegaly. EXTREMITIES: No pedal edema. NEUROLOGIC: Awake, alert, oriented x3. SKIN: No significant lesions are noted. ASSESSMENT Metastatic left breast cancer stage IV now she has progressive disease with lung metastasis. PLAN I have reviewed her available records and I have had an extensive discussion with the patient regarding her condition. We discussed that the CT angiogram of the chest did not show any blood clots, but she has bilateral multiple pulmonary nodules which are consistent with metastatic disease. She also had widespread bony metastasis. The CT of the abdomen and pelvis showed a 2.4 cm left breast mass, as well as multiple bony metastasis. There is no evidence of liver metastasis noted. I discussed with the patient that she has progressive breast cancer. My recommendation is Hospice for best supportive care as the patient has declined treatment for breast cancer. However, she adamantly refused Hospice. She does not want to talk about that either. We discussed about chemotherapy which she declined as well. However, she has agreed to resume Femara. I discussed with the patient that we can resume Femara 2.5 mg daily and then she can come to my office for followup. I will check the tumor markers CEA and CA-15-3. The patient has also complaining of pain management. She has been getting IV Dilaudid with Percocet 10 mg. We discussed that I can add Dilaudid 2 mg to take every 4 hours p.r.n. The patient agreed with that. I have discussed these findings to Dr. Pedro HOLDER admission physician and also LICO Mart. In my opinion, the patient could be discharged back to the snf with instructions to resume Femara 2.5 mg daily and also add Dilaudid 2 mg every 4 hours p.r.n. for pain and continue Percocet 10 mg every 6 hours. We will draw tumor markers CA15-3 and CEA as a baseline. Further recommendations to follow when she comes to our office. The case has been discussed with Dr. Vasquez of [facility]. Thank you for asking my opinion. MD SÁNCHEZ Salazar/JENNY /7:38 AM /8:04 AM
== END 2016-04-28 13:19 ==
LOC: NEPA 20:22 → NEDA 23:36 → NEPGCP 04-27 01:34
PROVIDERS: ADMIT Hospitalist; ATTEND Hospitalist
DX: C50.912 Malignant neoplasm of unspecified site of left female breast (principal); C78.00 Secondary malignant neoplasm of unspecified lung; C79.51 Secondary malignant neoplasm of bone; R09.02 Hypoxemia; E83.52 Hypercalcemia; G62.9 Polyneuropathy, unspecified; F22 Delusional disorders; M54.89 Other dorsalgia; G89.29 Other chronic pain; R63.4 Abnormal weight loss; R06.00 Dyspnea, unspecified
CPT/HCPCS: 71010; 71275; 74177; 80048; 80053; 81001; 82378; 82550; 83605; 83735; 83880; 84484; 85025; 85610; 85730; 86300; 87040; 87804; 93005; 96374; 97162; 99285; G0378; J1170; J1650; J2060; J7030; J8540; Q9963; Q9967

== ENCOUNTER 2016-12-06 21:07 | Emergency (ER) | payer MEDICAID, OTHER ==
[~2016-12-06 21:07] MED LIST: ALBU0.08 NEB; ASPI81CH CHEW; BISA10SU3 RECTAL; DILA2TAB2 PO; FEMA2.5T PO; IBUP800T23 PO; SERO25TA PO; [UNRECOGNIZED DRUG - CODE]
[2016-12-06 21:38] VITALS: BP 203/92; PULSE 96; RESP 16; TEMP 98.7; O2SAT 98
[2016-12-06 22:22] LABS: AUTOMATED NEUTROPHIL # 3.9 TH/MM3 (1.8-7.7); BASOPHIL % 0.4 % (0.0-2.0); EOSINOPHIL % 0.5 % (0.0-4.0); HEMATOCRIT 35.7 % (35.0-46.0); HEMO FLAGS DIFF FINAL; LYMPH % 12.2 % (9.0-44.0); LYMPHOCYTE # 0.6 TH/MM3 (1.0-4.8); MEAN CELL VOLUME 91.9 FL (80.0-100.0); MEAN CORPUSCULAR HEMOGLOBIN 30.5 PG (27.0-34.0); MEAN CORPUSCULAR HGB CONC 33.2 % (32.0-36.0); MONO % 7.4 % (0.0-8.0); NEUT % 79.5 % (16.0-70.0); PLATELET COUNT 185 TH/MM3 (150-450); RED BLOOD COUNT 3.88 MIL/MM3 (4.00-5.30); RED CELL DISTRIBUTION WIDTH 14.2 % (11.6-17.2); WHITE BLOOD COUNT 4.9 TH/MM3 (4.0-11.0)
[2016-12-06 22:25] LABS: BACTERIA, URINE FEW /hpf; BLOOD, URINE NEG (NEG); COMMENT (UR) CULTURE INDICATED; CULTURE IF INDICATED CULTURE INDICATED; GLUCOSE,URINE NEG (NEG); HYALINE CAST, URINE 10 /lpf (RARE); KETONE, URINE NEG (NEG); MUCUS URINE MOD /lpf (OCC); NITRITE,URINE NEG (NEG); SQUAMOUS EPITHELIAL CELL URINE 11 /hpf (0-5); TRANSITIONAL EPI CELLS, URINE 2 /hpf; URINE COLOR YELLOW (YELLW/STRAW)
[2016-12-06 22:50] LABS: ALT (GPT) 18 U/L (10-53); ANION GAP 11 MEQ/L (5-15); AST (GOT) 37 U/L (15-37); BICARBONATE 24.9 MEQ/L (21.0-32.0); BLOOD UREA NITROGEN 20 MG/DL (7-18); CHLORIDE 106 MEQ/L (98-107); GLOMERULAR FILTRATION RATE 66 ML/MIN (>89); POTASSIUM 3.4 MEQ/L (3.5-5.1); SODIUM (NA) 142 MEQ/L (136-145)
[2016-12-06 22:53] LABS: ALKALINE PHOSPHATASE 122 U/L (45-117); TOTAL BILIRUBIN ADULT 0.8 MG/DL (0.2-1.0)
[2016-12-06 22:56] LABS: ALCOHOL LESS THAN 3 MG/DL (0-5)
--- NOTE | 2016-12-06 22:57 | PD ---
HPI Chief Complaint: Psychiatric Symptoms Time Seen by Provider: 21:33 Travel History International Travel<30 days: No Contact w/Intl Traveler<30days: No Traveled to known affect area: No History of Present Illness HPI This is a 66-year-old female who presents to the emergency department brought in via Jensen act from her assisted living facility. She evidently tried to leave today and the police brought her in because they were concerned that she was going to get hurting him make decisions for herself. Patient has a very poor historian. She talks about how at the assisted-living many of the women in their depressed and she's been trying to coordinate a meeting in order to discuss with the administration some changes. Patient will not describe to me how it is that she arrived in the emergency department with police. PFSH Past Medical History Blood Disorders: No Anxiety: Yes Depression: Yes Cancer: Yes (widespread osetolytic metastatic disease) Cardiovascular Problems: No Endocrine: No Genitourinary: No Immune Disorder: No Musculoskeletal: No Neurologic: No Psychiatric: Yes Reproductive: No Respiratory: No Tetanus Vaccination: Unknown Influenza Vaccination: No Social History Alcohol Use: No Tobacco Use: No Substance Use: No Allergies-Medications (Allergen,Severity, Reaction): Coded Allergies: No Known Allergies (Unverified , 04/26/16) Reported Meds & Prescriptions Reported Meds & Active Scripts Active Femara (Letrozole) 2.5 Mg Tab 2.5 Mg PO DAILY Review of Systems ROS Limitations: Poor Historian Physical Exam Narrative GENERAL:Well appearing, no acute distress SKIN: Focused skin assessment warm and dry. HEAD: Atraumatic. Normocephalic. EYES: Pupils equal and round. No injection or drainage. ENT: Moist mucous membranes NECK: Trachea midline. CARDIOVASCULAR: Regular rate and rhythm. No murmur appreciated. RESPIRATORY: Clear to auscultation. Breath sounds equal bilaterally. GASTROINTESTINAL: Abdomen soft, non-tender, nondistended. MUSCULOSKELETAL: No obvious deformities. NEUROLOGICAL: Awake and alert. No obvious cranial nerve deficits. Moving all extremities. PSYCHIATRIC: Pressured speech, tangential, seems to express some paranoia, impaired insight and judgment Data Data Last Documented VS Vital Signs Date Time Temp Pulse Resp B/P (MAP) Pulse Ox O2 Delivery O2 Flow Rate FiO2 12/06/16 21:38 98.7 96 16 203/92 (129) 98 Orders Orders Complete Blood Count With Diff (12/06/16 21:44) Comprehensive Metabolic Panel (12/06/16 21:44) Drug Screen, Random Urine (12/06/16 21:44) Urinalysis - C+S If Indicated (12/06/16 21:44) Alcohol (Ethanol) (12/06/16 21:44) Urine Culture (12/06/16 21:45) Labs Laboratory Tests Test 12/06/16 21:45 12/06/16 22:00 Urine Color YELLOW Urine Turbidity HAZY Urine pH 5.0 Urine Specific [place] 1.022 Urine Protein TRACE mg/dL Urine Glucose (UA) NEG mg/dL Urine Ketones NEG mg/dL Urine Occult Blood NEG Urine Nitrite NEG Urine Bilirubin NEG Urine Urobilinogen LESS THAN 2.0 MG/DL Urine Leukocyte Esterase LARGE Urine RBC 6 /hpf Urine WBC 25 /hpf Urine Squamous Epithelial Cells 11 /hpf Urine Transitional Epithelial Cells 2 /hpf Urine Amorphous Sediment RARE Urine Bacteria FEW /hpf Urine Hyaline Casts 10 /lpf Urine Mucus MOD /lpf Microscopic Urinalysis Comment CULTURE INDICATED Urine Opiates Screen NEG Urine Barbiturates Screen NEG Urine Amphetamines Screen NEG Urine Benzodiazepines Screen NEG Urine Cocaine Screen NEG Urine Cannabinoids Screen NEG White Blood Count 4.9 TH/MM3 Red Blood Count 3.88 MIL/MM3 Hemoglobin 11.8 GM/DL Hematocrit 35.7 % Mean Corpuscular Volume 91.9 FL Mean Corpuscular Hemoglobin 30.5 PG Mean Corpuscular Hemoglobin Concent 33.2 % Red Cell Distribution Width 14.2 % Platelet Count 185 TH/MM3 Mean Platelet Volume 8.2 FL Neutrophils (%) (Auto) 79.5 % Lymphocytes (%) (Auto) 12.2 % Monocytes (%) (Auto) 7.4 % Eosinophils (%) (Auto) 0.5 % Basophils (%) (Auto) 0.4 % Neutrophils # (Auto) 3.9 TH/MM3 Lymphocytes # (Auto) 0.6 TH/MM3 Monocytes # (Auto) 0.4 TH/MM3 Eosinophils # (Auto) 0.0 TH/MM3 Basophils # (Auto) 0.0 TH/MM3 CBC Comment DIFF FINAL Differential Comment Blood Urea Nitrogen 20 MG/DL Creatinine 0.87 MG/DL Random Glucose 101 MG/DL Albumin 4.3 GM/DL Calcium Level 9.6 MG/DL Aspartate Amino Transf (AST/SGOT) 37 U/L Alanine Aminotransferase (ALT/SGPT) 18 U/L Sodium Level 142 MEQ/L Potassium Level 3.4 MEQ/L Chloride Level 106 MEQ/L Carbon Dioxide Level 24.9 MEQ/L Anion Gap 11 MEQ/L Estimat Glomerular Filtration Rate 66 ML/MIN MDM Medical Decision Making Medical Screen Exam Complete: Yes Emergency Medical Condition: Yes Interpretation(s) No leukocytosis Mild hypokalemia Urinary tract infection Drug screen is negative Differential Diagnosis Psychosis, dementia with behavioral disturbance, delusional disorder, adjustment reaction Narrative Course This is a 66-year-old female who has a history of metastatic breast cancer who was brought in under a Jensen act because she tried to leave her assisted living facility. On exam patient is very tangential and has some pressured speech. She gave me detailed descriptions of everyone living in her assisted living facility and how they are depressed. She was focused on the different ladies back stories. It was very difficult for me to direct the conversation and I was unable to ascertain what in her impression had her ultimately brought in by police under a Jensen act. I think she is very limited insight and judgment. She does seem to have some underlying mental illness. She has a urinary tract infection but otherwise labs are reassuring. Patient does require psychiatric evaluation. If psychiatry thinks the patient can be managed appropriately at her current facility that I think she can be discharged. Danielle Swenson MD Dec 06, 2016 22:57
[2016-12-06] MEDS ORDERED: NITROFURANTOIN MONOHYD MACROCR 100 MG CAP PO ONE (23:00)
[2016-12-07 00:30] VITALS: BP 156/71; PULSE 78; RESP 16; O2SAT 99
[2016-12-07 01:00] VITALS: BP 133/64; PULSE 73; RESP 18; O2SAT 98
[2016-12-07 02:05] VITALS: BP 118/57; PULSE 63; RESP 18; O2SAT 96
--- NOTE | 2016-12-07 14:14 | PD ---
History of Present Illness Chief Complaint: Psychiatric Symptoms Time Seen by Provider: 13:45 Travel History International Travel<30 Days: No Contact w/Intl Traveler<30days: No Known affected area: No Legal Status Legal Status: Jensen Act Jensen Act Signed By: Ashley Heath Jensen Act Comment: 12/06/2016 819 pm ShaheenMelissa Rosado #[id number] Case #[id number] History of Present Illness: History of Present Illness HPI This is a 66-year-old female with no previous psychiatric history who presents to the emergency department brought in under a Jensen act from her assisted living facility. The report alleges that the patient is not happy at her [facility] and tried to arrange a resident [place] meeting. When there was some resistance to such she decided to leave the [facility] She evidently tried to leave today and the police brought her in because they were concerned that she was going to get hurt. Patient is seen. EMR reviewed. No previous contact with [facility] psychiatry. She is alert, oriented and pleasant female who appears older than stated age. There is no psychosis, no dorothea and no suicdal or homicidal ideation. She verbalizes her discontent with the [facility] she resides in and her failed attempts at organizing a resident [place]. The patient is not psychotic, no dorothea. She denies any suicidal or homicidal ideation. She did not become aggressive and did not threaten anyone. TC to Yen t [phone]. Message left. Telephone call to patient's daughter Moses at [phone]. Message left. TC to Joseph at [phone] .Informed her that the patient does nto meet BA criteria and will be discharged. She agrees to pick the patient up later this afternoon. PFSH Past Medical History Blood Disorders: No Anxiety: Yes Depression: Yes Cancer: Yes (widespread osetolytic metastatic disease) Cardiovascular Problems: No Endocrine: No Genitourinary: No Immune Disorder: No Musculoskeletal: No Neurologic: No Psychiatric: Yes Reproductive: No Respiratory: No Tetanus Vaccination: Unknown Influenza Vaccination: No Psychiatric History Psychiatric History Hx Psychiatric Treatment: Patient denies any hx of psychiatric treatment. History of Inpatient Treatment: No Guns or firearms in home: No Social History , retired. has one daughter. Lives in [facility]. [facility] 3 times a week. Hx Alcohol Use: No Hx Tobacco Use: No Hx Substance Use: No Substance Use Type: Alcohol, Nicotine/Cigarettes Other Substances Used: 1ppd smoker- quit Jan 30, 1999 Hx of Substance Use Treatment: No Family Psychiatric History Negative Allergies-Medications (Allergen,Severity, Reaction): Coded Allergies: No Known Allergies (Unverified , 04/26/16) Reported Meds & Prescriptions Reported Meds & Active Scripts Active Femara (Letrozole) 2.5 Mg Tab 2.5 Mg PO DAILY Review of Systems Except as stated in HPI: all other systems reviewed are Neg Exam Alert: Yes [place]: Person (ox4) Mood: Anxious Affect: Appropriate Speech: Clear, Logical Eye Contact: Normal Memory Intact: Comment (no gross abnormality) Hallucinations: Other (Negative) Delusions: No Suicidal: Ideation (deneis any) Homicidal: Ideation (Deneis any) Insight/Judgement Fair. Not impaired. MDM Medical Decision Making Medical Record Reviewed: Yes Assessment/Plan This is a 66-year-old female with no previous psychiatric history who presents to the emergency department brought in under a Jensen act from her assisted living facility. The report alleges that the patient is not happy at her [facility] and tried to arrange a resident [place] meeting. When there was some resistance to such she decided to leave the [facility] She evidently tried to leave today and the police brought her in because they were concerned that she was going to get hurt. The patient did not present any agitation or any other behavioral dysregulation since she has been in [facility]. Lift BA. Patient does not meet criteria for Jensen act or present any acute psychiatric symptoms. Not psychotic and not suicidal or homicidal. Support provided. Lift BA Return to [facility]. Orders Orders Complete Blood Count With Diff (12/06/16 21:44) Comprehensive Metabolic Panel (12/06/16 21:44) Drug Screen, Random Urine (12/06/16 21:44) Urinalysis - C+S If Indicated (12/06/16 21:44) Alcohol (Ethanol) (12/06/16 21:44) Urine Culture (12/06/16 21:45) Nitrofurantoin Monohyd Macrocr (Macrobid (12/06/16 23:00) Psych Screen (12/07/16 00:57) Diet Regular Basic (12/07/16 Breakfast) Diet Regular Basic (12/07/16 Lunch) Results Vital Signs Date Time Temp Pulse Resp B/P (MAP) Pulse Ox O2 Delivery O2 Flow Rate FiO2 12/07/16 13:05 12/07/16 02:05 63 18 118/57 (77) 96 Room Air 12/07/16 01:00 73 18 133/64 (87) 98 Room Air 12/07/16 00:57 12/07/16 00:30 78 16 156/71 (99) 99 Room Air 12/06/16 21:38 98.7 96 16 203/92 (129) 98 Laboratory Tests Test 12/06/16 21:45 12/06/16 22:00 Urine Color YELLOW Urine Turbidity HAZY Urine pH 5.0 Urine Specific [place] 1.022 Urine Protein TRACE Urine Glucose (UA) NEG Urine Ketones NEG Urine Occult Blood NEG Urine Nitrite NEG Urine Bilirubin NEG Urine Urobilinogen LESS THAN 2.0 Urine Leukocyte Esterase LARGE Urine RBC 6 Urine WBC 25 Urine Squamous Epithelial Cells 11 Urine Transitional Epithelial Cells 2 Urine Amorphous Sediment RARE Urine Bacteria FEW Urine Hyaline Casts 10 Urine Mucus MOD Microscopic Urinalysis Comment CULTURE INDICATED Urine Opiates Screen NEG Urine Barbiturates Screen NEG Urine Amphetamines Screen NEG Urine Benzodiazepines Screen NEG Urine Cocaine Screen NEG Urine Cannabinoids Screen NEG White Blood Count 4.9 Red Blood Count 3.88 Hemoglobin 11.8 Hematocrit 35.7 Mean Corpuscular Volume 91.9 Mean Corpuscular Hemoglobin 30.5 Mean Corpuscular Hemoglobin Concent 33.2 Red Cell Distribution Width 14.2 Platelet Count 185 Mean Platelet Volume 8.2 Neutrophils (%) (Auto) 79.5 Lymphocytes (%) (Auto) 12.2 Monocytes (%) (Auto) 7.4 Eosinophils (%) (Auto) 0.5 Basophils (%) (Auto) 0.4 Neutrophils # (Auto) 3.9 Lymphocytes # (Auto) 0.6 Monocytes # (Auto) 0.4 Eosinophils # (Auto) 0.0 Basophils # (Auto) 0.0 CBC Comment DIFF FINAL Differential Comment Blood Urea Nitrogen 20 Creatinine 0.87 Random Glucose 101 Total Protein 8.1 Albumin 4.3 Calcium Level 9.6 Alkaline Phosphatase 122 Aspartate Amino Transf (AST/SGOT) 37 Alanine Aminotransferase (ALT/SGPT) 18 Total Bilirubin 0.8 Sodium Level 142 Potassium Level 3.4 Chloride Level 106 Carbon Dioxide Level 24.9 Anion Gap 11 Estimat Glomerular Filtration Rate 66 Ethyl Alcohol Level LESS THAN 3 Date/Time Source Procedure Growth Status 12/06/16 21:45 Urine Clean Catch Urine Culture Pending Worksheet Diagnosis Primary Impression: Adjustment disorder Psychiatrically Cleared: Yes Med/ Other Pt Specific Info: No Change to Meds Prescriptions Nitrofurantoin Monohydrate Macrocrystals (Macrobid) 100 Mg Cap 100 MG PO BID for Infection for 7 Days, #14 CAP 0 Refills Prov: Danielle Swenson MD 12/07/16 Disposition: 01 DISCHARGE HOME Condition: Stable Problem Qualifiers Primary Impression: Adjustment disorder Qualified Codes: F43.25 - Adjustment disorder with mixed disturbance of emotions and conduct Sia Wilson Dec 07, 2016 14:14
--- NOTE | 2016-12-07 17:08 | PD ---
Physical Exam Date Seen by Provider: Dec 07, 2016 Time Seen by Provider: 17:07 Narrative 66-year-old female previously brought in under the Jensen act, and medically cleared, has been evaluated by psychiatric services and determined to be able to be discharged. Patient is medically stable. Patient is stable for discharge. Patient will be treated with Macrodantin for her urinary tract infection. Data Data Last Documented VS Vital Signs Date Time Temp Pulse Resp B/P (MAP) Pulse Ox O2 Delivery O2 Flow Rate FiO2 12/07/16 16:32 12/07/16 02:05 63 18 96 Room Air 12/06/16 21:38 98.7 Orders Orders Complete Blood Count With Diff (12/06/16 21:44) Comprehensive Metabolic Panel (12/06/16 21:44) Drug Screen, Random Urine (12/06/16 21:44) Urinalysis - C+S If Indicated (12/06/16 21:44) Alcohol (Ethanol) (12/06/16 21:44) Urine Culture (12/06/16 21:45) Nitrofurantoin Monohyd Macrocr (Macrobid (12/06/16 23:00) Psych Screen (12/07/16 00:57) Diet Regular Basic (12/07/16 Breakfast) Diet Regular Basic (12/07/16 Lunch) Diet Regular Basic (12/07/16 Dinner) Labs Laboratory Tests Test 12/06/16 21:45 12/06/16 22:00 Urine Color YELLOW Urine Turbidity HAZY Urine pH 5.0 Urine Specific [place] 1.022 Urine Protein TRACE mg/dL Urine Glucose (UA) NEG mg/dL Urine Ketones NEG mg/dL Urine Occult Blood NEG Urine Nitrite NEG Urine Bilirubin NEG Urine Urobilinogen LESS THAN 2.0 MG/DL Urine Leukocyte Esterase LARGE Urine RBC 6 /hpf Urine WBC 25 /hpf Urine Squamous Epithelial Cells 11 /hpf Urine Transitional Epithelial Cells 2 /hpf Urine Amorphous Sediment RARE Urine Bacteria FEW /hpf Urine Hyaline Casts 10 /lpf Urine Mucus MOD /lpf Microscopic Urinalysis Comment CULTURE INDICATED Urine Opiates Screen NEG Urine Barbiturates Screen NEG Urine Amphetamines Screen NEG Urine Benzodiazepines Screen NEG Urine Cocaine Screen NEG Urine Cannabinoids Screen NEG White Blood Count 4.9 TH/MM3 Red Blood Count 3.88 MIL/MM3 Hemoglobin 11.8 GM/DL Hematocrit 35.7 % Mean Corpuscular Volume 91.9 FL Mean Corpuscular Hemoglobin 30.5 PG Mean Corpuscular Hemoglobin Concent 33.2 % Red Cell Distribution Width 14.2 % Platelet Count 185 TH/MM3 Mean Platelet Volume 8.2 FL Neutrophils (%) (Auto) 79.5 % Lymphocytes (%) (Auto) 12.2 % Monocytes (%) (Auto) 7.4 % Eosinophils (%) (Auto) 0.5 % Basophils (%) (Auto) 0.4 % Neutrophils # (Auto) 3.9 TH/MM3 Lymphocytes # (Auto) 0.6 TH/MM3 Monocytes # (Auto) 0.4 TH/MM3 Eosinophils # (Auto) 0.0 TH/MM3 Basophils # (Auto) 0.0 TH/MM3 CBC Comment DIFF FINAL Differential Comment Blood Urea Nitrogen 20 MG/DL Creatinine 0.87 MG/DL Random Glucose 101 MG/DL Total Protein 8.1 GM/DL Albumin 4.3 GM/DL Calcium Level 9.6 MG/DL Alkaline Phosphatase 122 U/L Aspartate Amino Transf (AST/SGOT) 37 U/L Alanine Aminotransferase (ALT/SGPT) 18 U/L Total Bilirubin 0.8 MG/DL Sodium Level 142 MEQ/L Potassium Level 3.4 MEQ/L Chloride Level 106 MEQ/L Carbon Dioxide Level 24.9 MEQ/L Anion Gap 11 MEQ/L Estimat Glomerular Filtration Rate 66 ML/MIN Ethyl Alcohol Level LESS THAN 3 MG/DL [facility] Medical Record Reviewed: Yes Supervised Visit with SUHAIL: Yes Narrative Course 66-year-old female previously brought in under the [employer] act, and medically cleared, has been evaluated by psychiatric services and determined to be able to be discharged. Patient is medically stable. Patient is stable for discharge. Diagnosis Primary Impression: Adjustment disorder Qualified Codes: F43.20 - Adjustment disorder, unspecified Additional Impression: Urinary tract infection Patient Instructions: General Instructions, Mood Disorders (ED), Medical Clearance for Psychiatric Care (ED) Departure Forms: Tests/Procedures Additional Instruction: DX: Adjustment Disorder Please return to ED if symptoms worsen Med/Other Pt SpecificInfo: Prescription(s) given Disposition: 01 DISCHARGE HOME Condition: Stable Mervin Birch Dec 07, 2016 17:08
[2016-12-07] MEDS ORDERED: MACR100C2 PO (17:10)
[2016-12-07 18:02] VITALS: BP 127/77; PULSE 88; RESP 18; O2SAT 97
== END 2016-12-07 18:14 | disposition home or self-care (01) ==
LOC: NEPD 21:07 → NEPJ 12-07 18:14
DX: F43.25 Adjustment disorder with mixed disturbance of emotions and conduct (principal); N39.0 Urinary tract infection, site not specified; B96.89 Other specified bacterial agents as the cause of diseases classified elsewhere; Z79.899 Other long term (current) drug therapy
CPT/HCPCS: 80053; 80307; 81001; 85025; 87086; 99284